=== PATIENT | female | born 1935 | race Caucasian/White ===

== ENCOUNTER 2017-06-25 14:19 | Inpatient (IN) | payer OTHER ==
[~2017-06-25] VITALS: Ht 175.3 cm; Wt 90.3 kg
[2017-06-25 14:49] LABS: BASO # 0.1 x10^3/uL (0.0-0.2); BASO % 1 % (0-3); EOS % 1 % (0-3); HEMATOCRIT 41.5 % (36.0-47.0); HEMOGLOBIN 13.5 g/dL (12.0-15.5); LYMPH % 14 % (24-48); MEAN CORPUSCULAR HEMOGLOBIN 27 pg (25-35); MEAN CORPUSCULAR HGB CONC 33 g/dL (31-37); MEAN CORPUSCULAR VOLUME 84 fL (79-100); MONO % 8 % (0-9); NEUT % 77 % (31-73); PLATELET COUNT 284 x10^3/uL (140-400); RED BLOOD COUNT 4.93 x10^6/uL (3.50-5.40); RED CELL DISTRIBUTION WIDTH 15.4 % (11.5-14.5); WHITE BLOOD COUNT 7.3 x10^3/uL (4.0-11.0)
--- NOTE | 2017-06-25 14:52 | RAD ---
Chest radiograph 06/25/2017 at 1433 hours Indication: Shortness of air Comparison: None available Technique: Single frontal portable upright view of the chest is provided. Findings: Cardiomediastinal silhouette is enlarged. Small bilateral pleural effusions are present. There is an opacity in the right upper lobe which appears nodular and spiculated measuring 15 mm. Increased density in the right hilum may represent hilar lymphadenopathy. There is hazy opacity at the right lower lobe suggestive of atelectasis and/or infiltrates. Advanced right glenohumeral osteoarthrosis is present. Biapical pleural parenchymal scarring, right greater than left. No pneumothorax or pulmonary vascular congestion. Impression: 1. 15 mm spiculated nodule in the right upper lobe is suspicious for primary lung mass. Alternatively, findings may represent infectious/inflammatory etiology. Suspect right hilar lymphadenopathy. Further evaluation with a chest CT with contrast is recommended. 2. Enlarged cardiomediastinal silhouette with small bilateral pleural effusions.
[2017-06-25 14:59] LABS: CALCIUM 8.4 mg/dL (8.5-10.1); CREATININE 0.9 mg/dL (0.6-1.0); GFR 60.4; POTASSIUM 4.3 mmol/L (3.5-5.1)
[2017-06-25] MEDS ORDERED: cloNIDine HCL 0.1 MG TABLET PO ONE (15:00)
[2017-06-25 15:05] LABS: ALBUMIN 3.5 g/dL (3.4-5.0); ALBUMIN/GLOBULIN RATIO 1.1 (1.0-1.7); TOTAL BILIRUBIN 0.7 mg/dL (0.2-1.0); TOTAL PROTEIN 6.8 g/dL (6.4-8.2)
[2017-06-25] MEDS ORDERED: IOHEXOL 300 MG/ML 75 ML VIAL IV ONE (15:15)
[2017-06-25] MEDS ORDERED: CONTRAST GIVEN MC PRN (15:15)
[2017-06-25] MEDS ORDERED: FUROSEMIDE 40 MG/4 ML VIAL. IVP ONE (15:30)
[2017-06-25] MEDS ORDERED: ASPIRIN CHEWABLE 81 MG TABLET. PO ONE (15:30)
--- NOTE | 2017-06-25 16:34 | RAD ---
CTA of the chest with contrast, 06/25/2017: History: Shortness of breath Multidetector CT imaging was performed following an IV bolus injection of iodinated contrast material. Multiplanar reconstructions were produced including coronal MIP images. The central pulmonary arteries are well opacified and no filling defects are seen to suggest pulmonary emboli. The heart is generally enlarged. There is calcific plaquing of the thoracic aorta without evidence of aneurysm. The aortic lumen is not significantly opacified due to the bolus timing. Scattered coronary artery calcifications are present. Multiple small mediastinal lymph nodes are present without definite pathologic enlargement. There is a moderate sized right pleural effusion and a smaller left pleural effusion. Interlobular septal thickening is present, best seen in the lower chest. There are moderate patchy bibasilar infiltrates. There is a peripheral density in the right apex with underlying areas of mild bronchiectasis. This probably represents scarring with traction bronchiectasis. There is a 12 mm spiculated noncalcified peripheral parenchymal opacity laterally in the left upper lobe as best seen on image 33 of series #3. Small bilateral renal cysts are noted. The right breast is surgically absent. There are moderate scattered degenerative changes in the thoracic spine. There is a slight superior endplate deformity at T6, of indeterminate age. There is severe arthritic change at the right glenohumeral articulation. IMPRESSION: 1. No CT evidence of central pulmonary emboli. 2. Cardiomegaly with coronary artery calcifications. 3. Moderate-sized pleural effusions, right greater than left. 4. Moderate patchy bilateral pulmonary infiltrates and interlobular septal thickening most likely representing pulmonary edema due to congestive heart failure. A component of pneumonia cannot be excluded. 5. Traction bronchiectasis and scarring in the right apex. 6. Small spiculated left upper lobe pulmonary nodule raising the possibility of lung malignancy. PQRS Compliance Statement: One or more of the following individualized dose reduction techniques were utilized for this examination: 1. Automated exposure control 2. Adjustment of the mA and/or kV according to patient size 3. Use of iterative reconstruction technique
[2017-06-25] MEDS ORDERED: ONDANSETRON PF 4 MG/2 ML VIAL. IV PRN (16:45)
--- NOTE | 2017-06-25 17:27 | HP ---
ADMIT DATE: 06/25/2017 CHIEF COMPLAINT: Shortness of breath and edema. HISTORY OF PRESENT ILLNESS: The patient is a pleasant elderly female who presents with shortness of breath and edema. She rates it as 7/10, it has been occurring for a couple of weeks. While in the ER, we noted that she had a BNP elevation of 12,000. Chest x-rays and CAT scans ____ showing a large pleural effusion bilaterally. I have discussed the case with the ER physician and her son. We are going to admit the patient with tentative diagnosis of congestive heart failure, acute on chronic diastolic and systolic. PAST MEDICAL HISTORY: Reviewed in the computerized system. She does have a history of breast cancer with right mastectomy when she was 32. ALLERGIES: None. FAMILY HISTORY: Heart failure. SOCIAL HISTORY: She does not drink, smoke or take drugs. MEDICATIONS: Reviewed, please refer to the MRAD. REVIEW OF SYSTEMS: GENERAL: No history of weight change, weakness or fevers. SKIN: No bruising, hair changes or rashes. EYES: No blurred, double or loss of vision. NOSE AND THROAT: No history of nosebleeds, hoarseness or sore throat. HEART: No history of palpitations, chest pain or shortness of breath on exertion. LUNGS: She complains of shortness of breath. GASTROINTESTINAL: Denies changes in appetite, nausea, vomiting, diarrhea or constipation. GENITOURINARY: No history of frequency, urgency, hesitancy or nocturia. NEUROLOGIC: Denies history of numbness, tingling, tremor or weakness. PSYCHIATRIC: No history of panic, anxiety or depression. ENDOCRINE: No history of heat or cold intolerance, polyuria or polydipsia. EXTREMITIES: She complains of edema. PHYSICAL EXAMINATION: VITAL SIGNS: Temperature afebrile, pulse 143, respirations 18, blood pressure 155/102, O2 sat 91%. GENERAL: She is alert, cooperative. HEART: Distant S1, S2 with a soft S3. LUNGS: Diffuse crackles with diminished breath sounds. ABDOMEN: Soft. EXTREMITIES: 2+ edema. SKIN: Somewhat poorly kept, somewhat dirty on her feet and the toenails have tinea unguium. ENDOCRINE: No thyromegaly. LYMPHATICS: No cervical nodes. HEMATOPOIETIC: No bruising. LABORATORY DATA: White count 7, hemoglobin 13, platelets 284. Electrolytes normal. BNP 11,998. 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 The patient has been admitted. We will consult Pulmonary Medicine and Cardiology. IV Lasix, check serial enzymes, serial EKGs, echocardiogram, frequent labs. Prognosis is guarded. GÓMEZ CHACON DO DR: GAYLE/seven JOB#: [id number] / [id number]
[2017-06-25 19:30] VITALS: BP 135/95
--- NOTE | 2017-06-25 20:45 | PHYS DOC ---
Past Medical History Past Medical History: High Cholesterol, Other Additional Past Medical Histor: SEASONAL ALLERGIES Past Surgical History: Oophorectomy Additional Past Surgical Histo: FOOT SX, MASECTOMY RIGHT SIDE Alcohol Use: Occasionally Additional Information: 1-2 GLASSES OF WINE/NIGHT Drug Use: None Adult General Chief Complaint Chief Complaint: SHORTNESS OF BREATH HPI HPI Patient is a 81 year old female presents with progressive shortness of breath with wet nonproductive cough over the past several weeks with progression over the past 2-3 days. Patient reports dyspnea with exertion which is improved with rest. Patient has been treating herself for asthma which has not improved. Patient denies orthopnea, paroxysmal nocturnal dyspnea. She denies fever, chills , nausea vomiting and sweats. Denies increased leg pain or swelling. Denies history of f DVT, PE, COPD, CAD and congestive heart failure. No other acute symptoms or else. Patient's accompanied at bedside by her son. Review of Systems Review of Systems Review symptoms as per history of present illness. All other review symptoms are negative. Current Medications Current Medications Current Medications Medications (Trade) Dose Ordered Sig/Shellie Start Time Stop Time Status Last Admin Dose Admin Clonidine HCl (Catapres) 0.2 mg 1X ONCE 06/25/17 15:00 06/25/17 15:01 DC Allergies Allergies Allergies Coded Allergies Type Severity Reaction Last Updated Verified Penicillins Allergy Intermediate Rash 06/25/17 Yes Sulfa (Sulfonamide Antibiotics) Allergy Intermediate 06/25/17 Yes niacin Allergy Intermediate 06/25/17 Yes Physical Exam Physical Exam Constitutional: Well developed, well nourished, no acute distress, non-toxic appearance. [] HENT: Normocephalic, atraumatic, bilateral external ears normal, oropharynx moist, no oral exudates, nose normal. [] Eyes: PERRLA, EOMI, conjunctiva normal, no discharge. [] Neck: Normal range of motion, no tenderness, supple, no stridor. [] Cardiovascular: Tachycardic, peripheral edema, negative Homans signs. [] Lungs & Thorax: Respirations, tachypneic, respiratory rate in 30s to 40s, coarse rales bilaterally. [] Abdomen: Bowel sounds normal, soft, no tenderness, no masses, no pulsatile masses. [] Skin: Warm, dry, no erythema, no rash. [] Back: No tenderness, no CVA tenderness. [] Extremities: No tenderness, no cyanosis, no clubbing, ROM intact, no edema. [] Neurologic: Alert and oriented X 3, normal motor function, normal sensory function, no focal deficits noted. [] Psychologic: Affect, anxious.. [] Current Patient Data Vital Signs Vital Signs Date Time Temp Pulse Resp B/P (MAP) Pulse Ox O2 Delivery O2 Flow Rate FiO2 06/25/17 15:00 134 22 134/90 (105) 94 Room Air 06/25/17 14:27 97.9 97.9 Lab Values Laboratory Tests Test 06/25/17 14:38 White Blood Count 7.3 x10^3/uL (4.0-11.0) Red Blood Count 4.93 x10^6/uL (3.50-5.40) Hemoglobin 13.5 g/dL (12.0-15.5) Hematocrit 41.5 % (36.0-47.0) Mean Corpuscular Volume 84 fL (79-100) Mean Corpuscular Hemoglobin 27 pg (25-35) Mean Corpuscular Hemoglobin Concent 33 g/dL (31-37) Red Cell Distribution Width 15.4 % (11.5-14.5) H Platelet Count 284 x10^3/uL (140-400) Neutrophils (%) (Auto) 77 % (31-73) H Lymphocytes (%) (Auto) 14 % (24-48) L Monocytes (%) (Auto) 8 % (0-9) Eosinophils (%) (Auto) 1 % (0-3) Basophils (%) (Auto) 1 % (0-3) Neutrophils # (Auto) 5.7 x10^3uL (1.8-7.7) Lymphocytes # (Auto) 1.0 x10^3/uL (1.0-4.8) Monocytes # (Auto) 0.5 x10^3/uL (0.0-1.1) Eosinophils # (Auto) 0.0 x10^3/uL (0.0-0.7) Basophils # (Auto) 0.1 x10^3/uL (0.0-0.2) Sodium Level 140 mmol/L (136-145) Potassium Level 4.3 mmol/L (3.5-5.1) Chloride Level 106 mmol/L (98-107) Carbon Dioxide Level 25 mmol/L (21-32) Anion Gap 9 (6-14) Blood Urea Nitrogen 16 mg/dL (7-20) Creatinine 0.9 mg/dL (0.6-1.0) Estimated GFR (Cockcroft-Gault) 60.4 BUN/Creatinine Ratio 18 (6-20) Glucose Level 128 mg/dL (70-99) H Calcium Level 8.4 mg/dL (8.5-10.1) L Total Bilirubin 0.7 mg/dL (0.2-1.0) Aspartate Amino Transferase (AST) 26 U/L (15-37) Alanine Aminotransferase (ALT) 35 U/L (14-59) Alkaline Phosphatase 78 U/L (46-116) Troponin I Quantitative 0.019 ng/mL (0.000-0.055) VY-Dfr-F-Type Natriuretic Peptide 78013 pg/mL (0-449) H Total Protein 6.8 g/dL (6.4-8.2) Albumin 3.5 g/dL (3.4-5.0) Albumin/Globulin Ratio 1.1 (1.0-1.7) Laboratory Tests 06/25/17 14:38 Laboratory Tests 06/25/17 14:38 EKG EKG [EKG: Sinus tach] Radiology/Procedures Radiology/Procedures [Chest x-ray: Pulmonary vascular congestion with concern for spiculated nodule in right upper lobe per radiology report. CTA chest: No evidence of PE. Moderate size pleural effusions right greater than left, moderate patchy bilateral pulmonary infiltrates and injure ocular septal thickening most likely representing pulmonary edema due to CHF, traction bronchiectasis, spiculated left upper lobe pulmonary nodule raising the possibility of malignancy per radiology report] Course & Med Decision Making Course & Med Decision Making Pertinent Labs and Imaging studies reviewed. (See chart for details) [New-onset CHF. IV diuretics given with improved symptoms. Patient noted to be in sinus tach, no evidence of PE on CT angiogram. Dr. Dias to admit. Pulmonology and cardiology consulted.] Dragon Disclaimer Dragon Disclaimer This electronic medical record was generated, in whole or in part, using a voice recognition dictation system. Departure Departure Impression: Primary Impression: CHF exacerbation Disposition: ADMITTED INPATIENT Admitting Physician: Lucian Dias Condition: STABLE Referrals: MURIEL SLATER MD (PCP) DEBORAH MONTOYA DO Jun 25, 2017 20:45
[2017-06-25] MEDS ORDERED: FUROSEMIDE 40 MG/4 ML VIAL. IVP SCH (21:00)
[2017-06-25 23:00] VITALS: BP 135/91
--- NOTE | 2017-06-25 23:57 | ACF ---
Admission Forms Criteria HEART FAILURE: COMMON COMPLICATIONS (Place 'X' for any and all applicable criteria): Ongoing inpatient care may be indicated for heart failure with 1 or more of the following (1)(2)(3)(4)(5)(6)(7)(8): [ ]I. New-onset heart failure [ ]II. Acute cardiac ischemia causing or associated with failure [ ]III. Ongoing need for care for primary condition requiring frequent therapy adjustments because of changes in cardiac function (eg, drug dosage changes for drugs that are renally metabolized) [ X]IV. Complications of heart failure, including 1 or more of the following: [ ]a) Hemodynamic instability [ ]b) Pericardial effusion [ ]c) Symptomatic pleural effusion [ ]d) Hypoxemia [ ]e) Tachypnea [X ]f) Dyspnea [ ]g) Syncope [ ]h) Altered mental status [ ]i) Acute renal insufficiency that is severe (reduction of more than 50% in estimated glomerular filtration rate from baseline) or progressive reduction of more than 25% in estimated glomerular filtration rate from baseline, with creatinine continuing to rise) [ ]j) Debilitating anasarca (eg tissue breakdown with infection, inability to void due to edema) (E) [ ]k) Clinically significant metabolic abnormalities due to heart failure (eg, new-onset metabolic acidosis) Extended stay may be needed until ALL of the following are present (1)(3)(18)(41 )(55) [ ]a) Hemodynamic stability [ ]b) Stable and effective diuretic regimen established (or patient on stable dialysis regimen if in chronic renal failure) [ ]c) Volume status acceptable on oral medication [ ]d) Breathing comfortably at rest [ ]e) Saturation of arterial oxygen greater than 90% or at acceptable baseline [ ]f) Pulmonary edema absent or improved [ ]g) Peripheral or sacral edema absent or improved [ ]h) Renal function stable and manageable at a lower level of care [ ]i) Complications (eg, pleural effusion) resolved or manageable at a lower level of care [ ]g) Patient or caregiver has received written discharge instructions or educational material addressing activity level, diet, discharge medications, follow-up appointment, weight monitoring, and what to do if symptoms worsen.(25)(26) The original [facility] content created by [email or web address] has been revised. The portions of the content which have been revised are identified through the use of italic text, and [facility] has neither reviewed nor approved the modified material.All other unmodified content is copyright [facility]. Please see references footnoted in the original [facility] edition 2015 Admission Criteria Met?: Yes FAMILIA MÁRQUEZ Jun 25, 2017 23:57
[2017-06-26] MEDS ORDERED: MULT-208 PO (01:40)
[2017-06-26 03:05] VITALS: BP 116/87
[2017-06-26 06:07] LABS: ALBUMIN 3.2 g/dL (3.4-5.0); ALBUMIN/GLOBULIN RATIO 1.2 (1.0-1.7); CALCIUM 8.5 mg/dL (8.5-10.1); CREATININE 0.8 mg/dL (0.6-1.0); GFR 69.2; TOTAL BILIRUBIN 0.5 mg/dL (0.2-1.0); TOTAL PROTEIN 5.8 g/dL (6.4-8.2)
--- NOTE | 2017-06-26 07:07 | EKG ---
[facility] [address] [place] [address] Test Date: 2017-06-25 Test Time: 14:34:57 Pat Name: ROYAL JUAN Department: Room: 205 1 Gender: F Supervisor Steffen House: : 1935 Requested By: DEBORAH MONTOYA Order Number: [id number] Reading MD: Uma Avendano Measurements Intervals Patrick Rate: 138 P: 144 NV: 112 QRS: -19 QRSD: 86 T: 102 QT: 314 QTc: 483 Interpretive Statements SINUS TACHYCARDIA ATRIAL PREMATURE COMPLEX(ES) LEFTWARD AXIS INCOMPLETE RIGHT BUNDLE BRANCH BLOCK CONSIDER LEFT VENTRICULAR HYPERTROPHY ST & T ABNORMALITY, CONSIDER ANTEROLATERAL ISCHEMIA Electronically Signed On 06-27-2017 20:22:19 CDT by Uma Avendano
[2017-06-26 07:20] VITALS: BP 122/91
[2017-06-26] MEDS ORDERED: CETI10TA16 PO (08:08)
[2017-06-26] MEDS ORDERED: ATOR20TA58 PO (08:08)
[2017-06-26] MEDS: FUROSEMIDE 40 MG/4 ML VIAL. IVP SCH ×2 (09:37→20:29)
--- NOTE | 2017-06-26 09:38 | PDOC2 ---
VIRIDIANA HIDALGO SHAKER OUT 06/26/17 0938: CARDIAC CONSULT DATE OF CONSULT Date of Consult DATE: 06/26/17 TIME: 09:32 REASON FOR CONSULT Reason for Consult: CHF REFERRING PHYSICIAN Referring Physician: Juan Daniel SOURCE Source: Chart review, Patient HISTORY OF PRESENT ILLNESS HISTORY OF PRESENT ILLNESS This is a pleasant 81 yo female admitted for complains of SOA. Reports that she has been having bouts of KOCH in the last few weeks and became more prominent in the last week. Positive for intermittent episodes of orthopnea and PND. No productive cough nor CP. She thought it was just her asthma a d allergies but her treatment has not been helping. Denies any fever or chills. Upon admission she was noted with CHF. Upon tele review it appears that she has been having paroxysmal episodes of 2:1 atrial flutter which she does have hx of . She is positive for remote breast CA treated with mastectomy and cobalt treatment. Reports no hx of VTE, CAD, GI bleed. Lately in addition she has been having decreased appetite, no significant swelling of her extremities. Denies any diarrhea, nausea or vomiting but she has been experiencing some palpitations. PAST MEDICAL HISTORY Cardiovascular: HTN (regimen taken off in the past since her BP has been good) , Hyperlipidemia Pulmonary: Asthma GI: No pertinent hx Heme/Onc: Cancer (breast) Hepatobiliary: No pertinent hx Psych: No pertinent hx Musculoskeletal: Osteoarthritis Rheumatologic: No pertinent hx Infectious disease: No pertinent hx ENT: Allergic Rhinitis Renal/: No pertinent hx Endocrine: No pertinent hx, Other (miscarriage) Dermatology: No pertinent hx Grav: 3 Para: 2 PAST SURGICAL HISTORY Past Surgical History: Mastectomy (right in 1972), Other (oopherectomy and right foot surgery) FAMILY HISTORY Family History: Stroke (father) SOCIAL HISTORY Smoke: No ALCOHOL: none Drugs: None Lives: with Family (son) CURRENT MEDICATIONS CURRENT MEDICATIONS Current Medications Medications (Trade) Dose Ordered Sig/Shellie Route PRN Reason Start Time Stop Time Status Last Admin Dose Admin Iohexol (Omnipaque 300 Mg/ml) 75 ml 1X ONCE IV 06/25/17 15:15 06/25/17 15:16 DC 06/25/17 15:56 Furosemide (Lasix) 40 mg 1X ONCE IVP 06/25/17 15:30 06/25/17 15:37 DC 06/25/17 16:32 Aspirin (Children'S Aspirin) 162 mg 1X ONCE PO 06/25/17 15:30 06/25/17 15:37 DC 06/25/17 16:33 ALLERGIES ALLERGIES: Coded Allergies: Penicillins (Verified Allergy, Intermediate, Rash, 06/25/17) Sulfa (Sulfonamide Antibiotics) (Verified Allergy, Intermediate, 06/25/17) niacin (Verified Allergy, Intermediate, 06/25/17) ROS Review of System 14 point ROS evaluated with pertinent positives noted per HPI PHYSICAL EXAM General: Alert, Oriented X3, Cooperative, No acute distress HEENT: Atraumatic, Mucous membr. moist/pink Lungs: Other (basilar crackles) Heart: Regular rate (SR), Normal S1, Normal S2, Other (2/6 systolic murmur to LLS border) Abdomen: Soft, No tenderness Extremities: No cyanosis, Other (1+ bilateral LE pitting edema) Skin: No breakdown, No significant lesion Neuro: Normal speech, Sensation intact Psych/Mental Status: Mental status NL, Mood NL MUSCULOSKELETAL: Osteoarthritic changes both hands VITALS VITALS Vital Signs Date Time Temp Pulse Resp B/P (MAP) Pulse Ox O2 Delivery O2 Flow Rate FiO2 06/26/17 07:20 97.5 139 22 122/91 (101) 98 Room Air 97.5 LABS Lab: Laboratory Tests Test 06/25/17 14:38 06/25/17 22:45 06/26/17 04:45 White Blood Count 7.3 x10^3/uL (4.0-11.0) Red Blood Count 4.93 x10^6/uL (3.50-5.40) Hemoglobin 13.5 g/dL (12.0-15.5) Hematocrit 41.5 % (36.0-47.0) Mean Corpuscular Volume 84 fL (79-100) Mean Corpuscular Hemoglobin 27 pg (25-35) Mean Corpuscular Hemoglobin Concent 33 g/dL (31-37) Red Cell Distribution Width 15.4 % (11.5-14.5) Platelet Count 284 x10^3/uL (140-400) Neutrophils (%) (Auto) 77 % (31-73) Lymphocytes (%) (Auto) 14 % (24-48) Monocytes (%) (Auto) 8 % (0-9) Eosinophils (%) (Auto) 1 % (0-3) Basophils (%) (Auto) 1 % (0-3) Neutrophils # (Auto) 5.7 x10^3uL (1.8-7.7) Lymphocytes # (Auto) 1.0 x10^3/uL (1.0-4.8) Monocytes # (Auto) 0.5 x10^3/uL (0.0-1.1) Eosinophils # (Auto) 0.0 x10^3/uL (0.0-0.7) Basophils # (Auto) 0.1 x10^3/uL (0.0-0.2) Sodium Level 140 mmol/L (136-145) 144 mmol/L (136-145) Potassium Level 4.3 mmol/L (3.5-5.1) 4.0 mmol/L (3.5-5.1) Chloride Level 106 mmol/L (98-107) 106 mmol/L (98-107) Carbon Dioxide Level 25 mmol/L (21-32) 26 mmol/L (21-32) Anion Gap 9 (6-14) 12 (6-14) Blood Urea Nitrogen 16 mg/dL (7-20) 15 mg/dL (7-20) Creatinine 0.9 mg/dL (0.6-1.0) 0.8 mg/dL (0.6-1.0) Estimated GFR (Cockcroft-Gault) 60.4 69.2 BUN/Creatinine Ratio 18 (6-20) 19 (6-20) Glucose Level 128 mg/dL (70-99) 96 mg/dL (70-99) Calcium Level 8.4 mg/dL (8.5-10.1) 8.5 mg/dL (8.5-10.1) Total Bilirubin 0.7 mg/dL (0.2-1.0) 0.5 mg/dL (0.2-1.0) Aspartate Amino Transf (AST/SGOT) 26 U/L (15-37) 22 U/L (15-37) Alanine Aminotransferase (ALT/SGPT) 35 U/L (14-59) 27 U/L (14-59) Alkaline Phosphatase 78 U/L (46-116) 71 U/L (46-116) Troponin I Quantitative 0.019 ng/mL (0.000-0.055) 0.043 ng/mL (0.000-0.055) 0.042 ng/mL (0.000-0.055) JU-Atw-F-Type Natriuretic Peptide 93124 pg/mL (0-449) Total Protein 6.8 g/dL (6.4-8.2) 5.8 g/dL (6.4-8.2) Albumin 3.5 g/dL (3.4-5.0) 3.2 g/dL (3.4-5.0) Albumin/Globulin Ratio 1.1 (1.0-1.7) 1.2 (1.0-1.7) ASSESSMENT/PLAN ASSESSMENT/PLAN 1. Dyspnea with RUL mass and acute CHF likely diastolic dysfunction: SVT contributing 2. Hx of asthma 3. Arrhythmia: appears to be paroxysmal episodes of 2:1 atrial flutter 4. HTN: unmedicated, controlled 5. HLP: on home statin 6. HX of breast CA: in 1972 with mastectomy and treated with cobalt Recommendations 1. CXR, TTE, TSH, lipid panel, Mg, UA 2. Start on ECASA for now. Start on metoprolol 3. Continue with lasix. 4. Pulmonary consult. Problems: SHERRY PULIDO MD 06/27/17 0935: CARDIAC CONSULT ALLERGIES ALLERGIES: Coded Allergies: Penicillins (Verified Allergy, Intermediate, Rash, 06/25/17) Sulfa (Sulfonamide Antibiotics) (Verified Allergy, Intermediate, 06/25/17) niacin (Verified Allergy, Intermediate, 06/25/17) ASSESSMENT/PLAN ASSESSMENT/PLAN Patient seen and examined 06/26/17. Agree with TIRE CHANGER's assessment and plan. Continue diuresis for acute on chronic systolic heart failure. 2D echo showed EF 10-15%. Plan Lexiscan MPI for risk stratification Atrial flutter rate relatively well controlled Continue workup for lung mass per pulm team Consider NOAC for atrial flutter upon discharge if ok from pulm standpoint Thank you for you consultation. Problems: VIRIDIANA HIDALGO APRN Jun 26, 2017 09:38 SHERRY PULIDO MD Jun 27, 2017 09:35
--- NOTE | 2017-06-26 10:01 | PDOC ---
PROGRESS NOTES Chief Complaint Chief Complaint CC SOB, CHF exacerbation Hypercholesterolemia Breast CA History of Present Illness History of Present Illness 81 y/o F with CC of SOB with CHF exacerbation pt was greeted at the bedside in pleasant spirits AO3 pt was tachycardic CXR showed b/l pleural effusion and congested pulmonary vasculature lasix given today 40 IV BNP 98379 on 06/25 Vitals Vitals Vital Signs Date Time Temp Pulse Resp B/P (MAP) Pulse Ox O2 Delivery O2 Flow Rate FiO2 06/26/17 07:20 97.5 139 22 122/91 (101) 98 Room Air 97.5 Physical Exam General: Alert, Oriented X3, Cooperative, No acute distress Heart: Regular rate, Normal S1, Normal S2, No murmurs Lungs: Clear, Other Abdomen: Normal bowel sounds, Soft Extremities: No clubbing, No cyanosis Skin: No rashes, No breakdown Labs LABS Laboratory Tests Test 06/25/17 14:38 06/25/17 22:45 06/26/17 04:45 White Blood Count 7.3 x10^3/uL (4.0-11.0) Red Blood Count 4.93 x10^6/uL (3.50-5.40) Hemoglobin 13.5 g/dL (12.0-15.5) Hematocrit 41.5 % (36.0-47.0) Mean Corpuscular Volume 84 fL (79-100) Mean Corpuscular Hemoglobin 27 pg (25-35) Mean Corpuscular Hemoglobin Concent 33 g/dL (31-37) Red Cell Distribution Width 15.4 % (11.5-14.5) Platelet Count 284 x10^3/uL (140-400) Neutrophils (%) (Auto) 77 % (31-73) Lymphocytes (%) (Auto) 14 % (24-48) Monocytes (%) (Auto) 8 % (0-9) Eosinophils (%) (Auto) 1 % (0-3) Basophils (%) (Auto) 1 % (0-3) Neutrophils # (Auto) 5.7 x10^3uL (1.8-7.7) Lymphocytes # (Auto) 1.0 x10^3/uL (1.0-4.8) Monocytes # (Auto) 0.5 x10^3/uL (0.0-1.1) Eosinophils # (Auto) 0.0 x10^3/uL (0.0-0.7) Basophils # (Auto) 0.1 x10^3/uL (0.0-0.2) Sodium Level 140 mmol/L (136-145) 144 mmol/L (136-145) Potassium Level 4.3 mmol/L (3.5-5.1) 4.0 mmol/L (3.5-5.1) Chloride Level 106 mmol/L (98-107) 106 mmol/L (98-107) Carbon Dioxide Level 25 mmol/L (21-32) 26 mmol/L (21-32) Anion Gap 9 (6-14) 12 (6-14) Blood Urea Nitrogen 16 mg/dL (7-20) 15 mg/dL (7-20) Creatinine 0.9 mg/dL (0.6-1.0) 0.8 mg/dL (0.6-1.0) Estimated GFR (Cockcroft-Gault) 60.4 69.2 BUN/Creatinine Ratio 18 (6-20) 19 (6-20) Glucose Level 128 mg/dL (70-99) 96 mg/dL (70-99) Calcium Level 8.4 mg/dL (8.5-10.1) 8.5 mg/dL (8.5-10.1) Total Bilirubin 0.7 mg/dL (0.2-1.0) 0.5 mg/dL (0.2-1.0) Aspartate Amino Transf (AST/SGOT) 26 U/L (15-37) 22 U/L (15-37) Alanine Aminotransferase (ALT/SGPT) 35 U/L (14-59) 27 U/L (14-59) Alkaline Phosphatase 78 U/L (46-116) 71 U/L (46-116) Troponin I Quantitative 0.019 ng/mL (0.000-0.055) 0.043 ng/mL (0.000-0.055) 0.042 ng/mL (0.000-0.055) ZN-Wdd-Q-Type Natriuretic Peptide 96579 pg/mL (0-449) Total Protein 6.8 g/dL (6.4-8.2) 5.8 g/dL (6.4-8.2) Albumin 3.5 g/dL (3.4-5.0) 3.2 g/dL (3.4-5.0) Albumin/Globulin Ratio 1.1 (1.0-1.7) 1.2 (1.0-1.7) Review of Systems Review of Systems pt did not complain of pain or NVD pt had a nonproductive cough Assessment and Plan Assessmemt and Plan CC SOB, CHF exacerbation Hypercholesterolemia Breast CA PLAN -wait for cardio/pulm input (awaiting echo) -cont home meds -cont monitoring fluids and electrolytes -pt positioning to prevent fluid overload (pt recliner) -PTOT Problems: Comment Review of Relevant I have reviewed the following items george (where applicable) has been applied. Labs Laboratory Tests Test 06/25/17 14:38 06/25/17 22:45 06/26/17 04:45 White Blood Count 7.3 x10^3/uL (4.0-11.0) Red Blood Count 4.93 x10^6/uL (3.50-5.40) Hemoglobin 13.5 g/dL (12.0-15.5) Hematocrit 41.5 % (36.0-47.0) Mean Corpuscular Volume 84 fL (79-100) Mean Corpuscular Hemoglobin 27 pg (25-35) Mean Corpuscular Hemoglobin Concent 33 g/dL (31-37) Red Cell Distribution Width 15.4 % (11.5-14.5) Platelet Count 284 x10^3/uL (140-400) Neutrophils (%) (Auto) 77 % (31-73) Lymphocytes (%) (Auto) 14 % (24-48) Monocytes (%) (Auto) 8 % (0-9) Eosinophils (%) (Auto) 1 % (0-3) Basophils (%) (Auto) 1 % (0-3) Neutrophils # (Auto) 5.7 x10^3uL (1.8-7.7) Lymphocytes # (Auto) 1.0 x10^3/uL (1.0-4.8) Monocytes # (Auto) 0.5 x10^3/uL (0.0-1.1) Eosinophils # (Auto) 0.0 x10^3/uL (0.0-0.7) Basophils # (Auto) 0.1 x10^3/uL (0.0-0.2) Sodium Level 140 mmol/L (136-145) 144 mmol/L (136-145) Potassium Level 4.3 mmol/L (3.5-5.1) 4.0 mmol/L (3.5-5.1) Chloride Level 106 mmol/L (98-107) 106 mmol/L (98-107) Carbon Dioxide Level 25 mmol/L (21-32) 26 mmol/L (21-32) Anion Gap 9 (6-14) 12 (6-14) Blood Urea Nitrogen 16 mg/dL (7-20) 15 mg/dL (7-20) Creatinine 0.9 mg/dL (0.6-1.0) 0.8 mg/dL (0.6-1.0) Estimated GFR (Cockcroft-Gault) 60.4 69.2 BUN/Creatinine Ratio 18 (6-20) 19 (6-20) Glucose Level 128 mg/dL (70-99) 96 mg/dL (70-99) Calcium Level 8.4 mg/dL (8.5-10.1) 8.5 mg/dL (8.5-10.1) Total Bilirubin 0.7 mg/dL (0.2-1.0) 0.5 mg/dL (0.2-1.0) Aspartate Amino Transf (AST/SGOT) 26 U/L (15-37) 22 U/L (15-37) Alanine Aminotransferase (ALT/SGPT) 35 U/L (14-59) 27 U/L (14-59) Alkaline Phosphatase 78 U/L (46-116) 71 U/L (46-116) Troponin I Quantitative 0.019 ng/mL (0.000-0.055) 0.043 ng/mL (0.000-0.055) 0.042 ng/mL (0.000-0.055) CK-Fus-Q-Type Natriuretic Peptide 85760 pg/mL (0-449) Total Protein 6.8 g/dL (6.4-8.2) 5.8 g/dL (6.4-8.2) Albumin 3.5 g/dL (3.4-5.0) 3.2 g/dL (3.4-5.0) Albumin/Globulin Ratio 1.1 (1.0-1.7) 1.2 (1.0-1.7) Laboratory Tests Test 06/25/17 14:38 06/25/17 22:45 06/26/17 04:45 White Blood Count 7.3 x10^3/uL (4.0-11.0) Red Blood Count 4.93 x10^6/uL (3.50-5.40) Hemoglobin 13.5 g/dL (12.0-15.5) Hematocrit 41.5 % (36.0-47.0) Mean Corpuscular Volume 84 fL (79-100) Mean Corpuscular Hemoglobin 27 pg (25-35) Mean Corpuscular Hemoglobin Concent 33 g/dL (31-37) Red Cell Distribution Width 15.4 % (11.5-14.5) Platelet Count 284 x10^3/uL (140-400) Neutrophils (%) (Auto) 77 % (31-73) Lymphocytes (%) (Auto) 14 % (24-48) Monocytes (%) (Auto) 8 % (0-9) Eosinophils (%) (Auto) 1 % (0-3) Basophils (%) (Auto) 1 % (0-3) Neutrophils # (Auto) 5.7 x10^3uL (1.8-7.7) Lymphocytes # (Auto) 1.0 x10^3/uL (1.0-4.8) Monocytes # (Auto) 0.5 x10^3/uL (0.0-1.1) Eosinophils # (Auto) 0.0 x10^3/uL (0.0-0.7) Basophils # (Auto) 0.1 x10^3/uL (0.0-0.2) Sodium Level 140 mmol/L (136-145) 144 mmol/L (136-145) Potassium Level 4.3 mmol/L (3.5-5.1) 4.0 mmol/L (3.5-5.1) Chloride Level 106 mmol/L (98-107) 106 mmol/L (98-107) Carbon Dioxide Level 25 mmol/L (21-32) 26 mmol/L (21-32) Anion Gap 9 (6-14) 12 (6-14) Blood Urea Nitrogen 16 mg/dL (7-20) 15 mg/dL (7-20) Creatinine 0.9 mg/dL (0.6-1.0) 0.8 mg/dL (0.6-1.0) Estimated GFR (Cockcroft-Gault) 60.4 69.2 BUN/Creatinine Ratio 18 (6-20) 19 (6-20) Glucose Level 128 mg/dL (70-99) 96 mg/dL (70-99) Calcium Level 8.4 mg/dL (8.5-10.1) 8.5 mg/dL (8.5-10.1) Total Bilirubin 0.7 mg/dL (0.2-1.0) 0.5 mg/dL (0.2-1.0) Aspartate Amino Transf (AST/SGOT) 26 U/L (15-37) 22 U/L (15-37) Alanine Aminotransferase (ALT/SGPT) 35 U/L (14-59) 27 U/L (14-59) Alkaline Phosphatase 78 U/L (46-116) 71 U/L (46-116) Troponin I Quantitative 0.019 ng/mL (0.000-0.055) 0.043 ng/mL (0.000-0.055) 0.042 ng/mL (0.000-0.055) NQ-Sxa-W-Type Natriuretic Peptide 30498 pg/mL (0-449) Total Protein 6.8 g/dL (6.4-8.2) 5.8 g/dL (6.4-8.2) Albumin 3.5 g/dL (3.4-5.0) 3.2 g/dL (3.4-5.0) Albumin/Globulin Ratio 1.1 (1.0-1.7) 1.2 (1.0-1.7) Medications Current Medications Clonidine HCl (Catapres) 0.2 mg 1X ONCE PO ; Start 06/25/17 at 15:00; Stop at 15:01; Status DC Iohexol (Omnipaque 300 Mg/ml) 75 ml 1X ONCE IV Last administered on 06/25/17t 15:56; Start 06/25/17 at 15:15; Stop 06/25/17 at 15:16; Status DC Info (Do NOT chart on this entry -- for MONITORING) 1 each PRN DAILY PRN MC SEE COMMENTS; Start 06/25/17 at 15:15; Stop 06/27/17 at 15:14 Furosemide (Lasix) 40 mg 1X ONCE IVP Last administered on 06/25/17 16:32; Start 06/25/17 at 15:30; Stop 06/25/17 at 15:37; Status DC Aspirin (Children'S Aspirin) 162 mg 1X ONCE PO Last administered on 06/25/17 16:33; Start 06/25/17 at 15:30; Stop 06/25/17 at 15:37; Status DC Ondansetron HCl (Zofran) 4 mg PRN Q8HRS PRN IV NAUSEA/VOMITING; Start 06/25/17 at 16:45; Stop 06/26/17 at 16:44 Furosemide (Lasix) 40 mg Q12HR IVP ; Start 06/25/17 at 21:00; Stop 06/25/17 at 22:39; Status DC Furosemide (Lasix) 40 mg Q12HR IVP Last administered on 06/26/17 09:37; Start 06/26/17 at 09:00 Active Scripts Active Reported Atorvastatin Calcium 20 Mg Tablet 20 Mg PO HS Cetirizine Hcl 10 Mg Tablet 10 Mg PO PRN DAILY PRN Multi-Day Vitamins (Multivitamin) 1 Each Tablet 1 Tab PO DAILY Vitals/I & O Vital Sign - Last 24 Hours 06/25/17 06/25/17 06/25/17 06/25/17 14:27 15:00 15:30 16:00 Temp 97.9 97.9 Pulse 143 134 136 133 Resp 20 22 22 20 B/P (MAP) 155/101 (119) 134/90 (105) 132/85 (101) 135/91 (106) Pulse Ox 91 94 95 95 O2 Delivery Room Air Room Air Room Air Room Air 06/25/17 06/25/17 06/25/17 06/25/17 16:30 17:00 17:30 18:00 Pulse 134 132 130 104 Resp 20 20 20 20 B/P (MAP) 130/87 (101) 160/91 (114) 123/71 (88) 118/82 (94) Pulse Ox 93 94 95 95 O2 Delivery Room Air Room Air Room Air Room Air 06/25/17 06/25/17 06/25/17 06/25/17 18:30 18:57 19:20 19:30 Temp 97.7 97.7 Pulse 99 98 98 139 Resp 20 20 22 20 B/P (MAP) 122/80 (94) 121/82 (95) 128/89 (102) 135/95 (108) Pulse Ox 95 95 95 97 O2 Delivery Room Air Room Air Room Air Room Air 06/25/17 06/25/17 06/25/17 06/26/17 19:30 21:00 23:00 03:05 Temp 97.7 97.6 98.0 97.7 97.6 98.0 Pulse 139 127 91 Resp 20 22 18 B/P (MAP) 135/95 (108) 135/91 (106) 116/87 (97) Pulse Ox 97 96 96 O2 Delivery Room Air Room Air Room Air Room Air 06/26/17 07:20 Temp 97.5 97.5 Pulse 139 Resp 22 B/P (MAP) 122/91 (101) Pulse Ox 98 O2 Delivery Room Air Intake and Output 06/25/17 06/25/17 06/26/17 15:00 23:00 07:00 Intake Total 320 ml Output Total 450 ml Balance -450 ml 320 ml GÓMEZ CHACON III DO Jun 26, 2017 10:01
[2017-06-26] MEDS ORDERED: METOPROLOL TART IMMED RELEASE 25 MG TABLET. PO ONE (10:30)
[2017-06-26 11:00] VITALS: BP 117/83
[2017-06-26 11:09] LABS: CHOLESTEROL/HDL RATIO 3.3
[2017-06-26 11:14] LABS: BILIRUBIN,URINE NEGATIVE (NEG); GLUCOSE,URINE NEGATIVE (NEG); NITRITE,URINE NEGATIVE (NEG); PROTEIN,URINE NEGATIVE (NEG-TRACE); UROBILINOGEN,URINE 0.2 mg/dL (0.2 mg/dL)
[2017-06-26 11:21] LABS: BACTERIA,URINE 0 /HPF (0-FEW); RBC,URINE 0 /HPF (0-2); SQUAMOUS EPITHELIAL CELL,UR FEW /LPF; WBC,URINE OCC /HPF (0-4)
--- NOTE | 2017-06-26 11:47 | RAD ---
Portable chest, 06/26/2017: History: Shortness of breath, congestive heart failure Comparison is made to yesterday's study. The heart is enlarged. There is calcific plaquing and tortuosity of the thoracic aorta. Mild patchy pulmonary opacities are unchanged. These were best defined on yesterday's CT study. There is pleural-parenchymal scarring in the right apex. There is persistent pleural thickening in the lateral costophrenic angles compatible with bilateral pleural fluid. No new pulmonary abnormality is seen. IMPRESSION: 1. Ongoing congestive heart failure with bilateral pleural effusions. 2. Stable bilateral parenchymal opacities.
--- NOTE | 2017-06-26 13:16 | PDOC ---
Provider Note Provider Note dictated PEGGY MONTEIRO MD Jun 26, 2017 13:16
--- NOTE | 2017-06-26 14:07 | CONS ---
DATE OF CONSULTATION: ATTENDING PHYSICIAN: Dr. Dias. REASON FOR CONSULTATION: Dyspnea, abnormal CT chest. HISTORY OF PRESENT ILLNESS: The patient is a pleasant 81-year-old female who has no significant past medical history. She presented to the hospital with increasing shortness of breath and some lower extremity edema. The patient was seen in the Emergency Room and was noted to have bilateral interstitial infiltrates consistent with CHF. [place] [id number]. The patient denies any cough, purulent sputum production or weight loss. No GI symptoms. She underwent CT chest done, which was also reviewed by me and there was no evidence of pulmonary embolism. There was cardiomegaly. There was bilateral lower lobe pleural effusion, right greater than left. There were moderate bilateral patchy infiltrates and interlobular septal thickening, more suggestive of pulmonary edema. There is also spiculated left upper lobe nodule which was 12 mm in size. She has been diuresed and her chest x-ray is showing mild improvement. I have been asked to see her for further evaluation. PAST MEDICAL HISTORY: Significant for history of breast cancer with right mastectomy when she was 32 years old. No significant history of tobacco use. PAST SURGICAL HISTORY: Right mastectomy. ALLERGIES: None. FAMILY HISTORY: Heart failure. SOCIAL HISTORY: No history of tobacco or drug use. MEDICATIONS: All reviewed as listed in the MRAD. REVIEW OF SYSTEMS: Twelve-point systems obtained, pertinent positives discussed in my history of present illness, otherwise noncontributory. All systems that were negative were reviewed as well. PHYSICAL EXAMINATION: GENERAL: She is awake, following commands. VITAL SIGNS: Blood pressure is stable, pulse ox 98% on room air. NECK: Supple. LUNGS: With crackles at the bases. CARDIOVASCULAR: Regular rate and rhythm. ABDOMEN: Soft, obese. EXTREMITIES: With trace pitting edema. LABORATORY DATA: Reviewed. White cell count 7.3, hemoglobin 13.5 and platelets are 284. BUN is 15, creatinine 0.8. Albumin is 3.2. IMPRESSION: 1. Dyspnea secondary to development of acute congestive heart failure. Radiographically and clinically improving. 2. Abnormal CT chest with bilateral infiltrates, bilateral pleural effusions and interlobular septal thickening. These are findings suggesting congestive heart failure, which is clinically improving. She also has a left upper lobe 12 mm small spiculated mass and the possibility of malignancy cannot be ruled out, but at this point, I will recommend treating congestive heart failure and following a CT chest in 4-6 weeks. 3. No significant history of tobacco use. 4. Clinically, less likely pneumonia. RECOMMENDATIONS: 1. Continue diuresis. 2. Obtain echocardiogram. 3. Repeat a CT chest in 4-6 weeks and if spiculated density persists, then we will do a PET scan. 4. P.r.n. oxygen. 5. Follow Cardiology recommendations. 6. Discussed with RN, we will follow along with you. PEGGY MONTEIRO MD DR: CANELO/seven JOB#: [id number] / [id number] MYRIAM
[2017-06-26 15:00] VITALS: BP 94/68
--- NOTE | 2017-06-26 16:57 | CARD ---
APPROVED REPORT EXAM: Two-dimensional and M-mode echocardiogram with Doppler and color Doppler. Other Information Quality : Good INDICATION Congestive Heart Failure 2D DIMENSIONS RVDd3.8 (2.9-3.5cm)Left Atrium(2D)4.8 (1.6-4.0cm) IVSd1.2 (0.7-1.1cm)Aortic Root(2D)2.9 (2.0-3.7cm) LVDd6.0 (3.9-5.9cm)LVOT Diameter2.2 (1.8-2.4cm) PWd1.1 (0.7-1.1cm)LVDs5.4 (2.5-4.0cm) FS (%) 7.0 %SV39.3 ml LVEF(%)15.0 (>50%) Aortic Valve AoV Peak Enrique.101.9cm/sAoV VTI12.5cm AO Peak GR.4.2mmHgLVOT VTI 7.90cm AO Mean GR.2mmHgAVA (VTI)2.40cm2 Mitral Valve MV E Sudkniup25.0cm/sMV DECEL [id number] MV A Xxgqofft37.7cm/sE/A Ratio1.2 TDI Lateral E' P. V4.63cm/sMedial E' P. V3.28cm/s E/Lateral E'14.9E/Medial E'21.0 Tricuspid Valve TR P. Otawjwky189us/sRAP [id number] TR Peak Gr.[id number] LEFT VENTRICLE The Left Ventricle is mildly dilated. There is mild concentric left ventricular hypertrophy. Left xu tricle ejection fraction is severely impaired. The Ejection Fraction is 10-15%. There is severe globa l hypokinesis of the left ventricle. Tissue Doppler imaging reveals severe left ventricular diastolic dysfunction. RIGHT VENTRICLE The right ventricle is normal size. RV Systolic function is mildly reduced. ATRIA The left atrium is mildly dilated. The right atrium is mildly dilated. The interatrial septum is inta ct with no evidence for an atrial septal defect or patent foramen ovale as noted on 2-D or Doppler im aging. AORTIC VALVE The aortic valve is calcified but opens well. Doppler and Color Flow revealed no significant aortic r egurgitation. There is no significant aortic valvular stenosis. MITRAL VALVE The mitral valve is calcified but opens well. There is no evidence of mitral valve prolapse. There is no mitral valve stenosis. Doppler and Color-flow revealed trace mitral regurgitation. TRICUSPID VALVE The tricuspid valve is normal in structure and function. Doppler and Color Flow revealed trace tricus pid regurgitation. There is mild pulmonary hypertension. The PA pressure was estimated at 35 mmHg. Th ere is no tricuspid valve stenosis. PULMONIC VALVE Doppler and Color Flow revealed trace pulmonic valvular regurgitation. There is no pulmonic valvular stenosis. GREAT VESSELS The aortic root is normal in size. The ascending aorta is mildly dilated at 3.5 cm. The IVC is dilate d and collapses >50% with inspiration. PERICARDIAL EFFUSION There is a trace circumferential pericardial effusion. Critical Notification Critical Value: No <Conclusion> Left ventricle ejection fraction is severely impaired. The Ejection Fraction is 10-15%. There is severe global hypokinesis of the left ventricle. RV Systolic function is mildly reduced. The ascending aorta is mildly dilated at 3.5 cm. There is a trace circumferential pericardial effusion.
[2017-06-26 19:20] VITALS: BP 112/79
[2017-06-26] MEDS: METOPROLOL TART IMMED RELEASE 25 MG TABLET. PO SCH (20:30)
[2017-06-26 23:15] VITALS: BP 110/68
[2017-06-27 03:20] VITALS: BP 109/64
[2017-06-27 05:20] LABS: BASO % 1 % (0-3); EOS % 2 % (0-3); HEMATOCRIT 39.9 % (36.0-47.0); HEMOGLOBIN 13.2 g/dL (12.0-15.5); LYMPH # 1.2 x10^3/uL (1.0-4.8); LYMPH % 19 % (24-48); MEAN CORPUSCULAR HEMOGLOBIN 27 pg (25-35); MEAN CORPUSCULAR HGB CONC 33 g/dL (31-37); MEAN CORPUSCULAR VOLUME 81 fL (79-100); MONO % 10 % (0-9); NEUT % 68 % (31-73); PLATELET COUNT 228 x10^3/uL (140-400); RED BLOOD COUNT 4.92 x10^6/uL (3.50-5.40); RED CELL DISTRIBUTION WIDTH 15.7 % (11.5-14.5); WHITE BLOOD COUNT 6.3 x10^3/uL (4.0-11.0)
[2017-06-27 05:33] LABS: CALCIUM 8.5 mg/dL (8.5-10.1); CREATININE 0.8 mg/dL (0.6-1.0); GFR 69.2; POTASSIUM 3.5 mmol/L (3.5-5.1)
[2017-06-27 07:15] VITALS: BP 102/72
--- NOTE | 2017-06-27 07:27 | RAD ---
Portable chest, 06/27/2017: History: Congestive heart failure Comparison is made to yesterday's study. The heart is enlarged. The pulmonary vascularity is at the upper limits of normal. There are mild patchy pulmonary opacities which are unchanged. There are stable small bilateral pleural effusions. There is no evidence of pneumothorax. No new abnormality is seen. IMPRESSION: No significant change since yesterday's study.
--- NOTE | 2017-06-27 10:51 | PDOC ---
CARDIO Progress Notes Date and Time Date of Service 06/27/2017 Time of Evaluation 1050 Subjective Subjective: No Chest Pain, No shortness of breath, No Palpitations, No Dizziness Vitals Vitals Vital Signs Date Time Temp Pulse Resp B/P (MAP) Pulse Ox O2 Delivery O2 Flow Rate FiO2 06/27/17 07:40 Room Air 06/27/17 07:15 97.5 89 102/72 (82) 95 97.5 06/27/17 03:20 18 Weight Weight [ ] Input and Output Intake and Output Intake and Output 06/27/17 07:00 Intake Total 500 ml Output Total 1350 ml Balance -850 ml Intake Oral 500 ml Output Urine Total 1350 ml # Voids 1 Laboratory Labs Laboratory Tests Test 06/27/17 04:45 White Blood Count 6.3 x10^3/uL (4.0-11.0) Red Blood Count 4.92 x10^6/uL (3.50-5.40) Hemoglobin 13.2 g/dL (12.0-15.5) Hematocrit 39.9 % (36.0-47.0) Mean Corpuscular Volume 81 fL (79-100) Mean Corpuscular Hemoglobin 27 pg (25-35) Mean Corpuscular Hemoglobin Concent 33 g/dL (31-37) Red Cell Distribution Width 15.7 % (11.5-14.5) Platelet Count 228 x10^3/uL (140-400) Neutrophils (%) (Auto) 68 % (31-73) Lymphocytes (%) (Auto) 19 % (24-48) Monocytes (%) (Auto) 10 % (0-9) Eosinophils (%) (Auto) 2 % (0-3) Basophils (%) (Auto) 1 % (0-3) Neutrophils # (Auto) 4.3 x10^3uL (1.8-7.7) Lymphocytes # (Auto) 1.2 x10^3/uL (1.0-4.8) Monocytes # (Auto) 0.6 x10^3/uL (0.0-1.1) Eosinophils # (Auto) 0.1 x10^3/uL (0.0-0.7) Basophils # (Auto) 0.0 x10^3/uL (0.0-0.2) Sodium Level 143 mmol/L (136-145) Potassium Level 3.5 mmol/L (3.5-5.1) Chloride Level 105 mmol/L (98-107) Carbon Dioxide Level 26 mmol/L (21-32) Anion Gap 12 (6-14) Blood Urea Nitrogen 17 mg/dL (7-20) Creatinine 0.8 mg/dL (0.6-1.0) Estimated GFR (Cockcroft-Gault) 69.2 Glucose Level 102 mg/dL (70-99) Calcium Level 8.5 mg/dL (8.5-10.1) Physical Exam HEENT: Neck Supple W Full Motion Chest: Symmetric LUNGS: Other (basilar crackles) Heart: S1S2, RRR (SR), murmurs (2/6 systolic murmur to LLS border) Abdomen: Soft N/T Extremities: No Calf Tenderness, Other (1+ bilateral LE pitting edema) Neurology: alert, oriented, follow commands Assessment Assessment 1. RUL mass: no immediate need for Bx. workup per pulmonary 2. Acute likely on chronic systolic CHF: tachyarrhythmia contributing but will need to rule out ischemia. CP free. 3. Tachyarrhythmia: notable for atrial flutter, still having paroxysmal episodes. 4. Cardiomyopathy: EF 10-15% 5. HTN: controlled 6. HLP: statin 7. HX of breast CA: in 1973 with mastectomy and treated with cobalt Recommendations 1. Continue with metoprolol, start on digoxin. 2. Continue on ECASA 81 mg and will start on eliquis 3. Continue with IV lasix and will monitor renal function and BP response. 4. Await MPI completion today for any further recommendation. 5. Will consider losartan or aldactone addition pending BP trend. Entresto is a consideration and will reeval as an outpt if pt is able to afford. 6. Will arrange for lifevest prior to DC VIRIDIANA HIDALGO APRN Jun 27, 2017 10:51
[2017-06-27 11:06] VITALS: BP 107/73
[2017-06-27] MEDS ORDERED: POTASSIUM CHLORIDE 20 MEQ TABLET.ER. PO ONE (12:00)
[2017-06-27] MEDS ORDERED: REGADENOSON 0.4 MG/5 ML DISP.SYRIN. IV ONE ×2 (12:42→12:45)
--- NOTE | 2017-06-27 13:03 | PDOC ---
PROGRESS NOTES Chief Complaint Chief Complaint CC SOB, CHF exacerbation Hypercholesterolemia Breast CA History of Present Illness History of Present Illness 81 y/o F with CC of SOB with CHF exacerbation PT was greeted at the bedside in pleasant spirits AO3 CXR showed b/l pleural effusion and congested pulmonary vasculature Repeated CXR scheduled for today Stress test today Started on metoprolol per cardio BNP 60816 on 06/25 Vitals Vitals Vital Signs Date Time Temp Pulse Resp B/P (MAP) Pulse Ox O2 Delivery O2 Flow Rate FiO2 06/27/17 11:06 97.5 94 18 107/73 (84) 96 Room Air 97.5 Physical Exam General: Alert, Oriented X3, Cooperative, No acute distress Heart: Regular rate (SR), Normal S1, Normal S2, Other (2/6 systolic murmur to LLS border) Lungs: Clear, Crackles Abdomen: Soft, No tenderness Extremities: No cyanosis, Other (1+ bilateral LE pitting edema) Skin: No breakdown, No significant lesion Labs LABS Laboratory Tests Test 06/27/17 04:45 White Blood Count 6.3 x10^3/uL (4.0-11.0) Red Blood Count 4.92 x10^6/uL (3.50-5.40) Hemoglobin 13.2 g/dL (12.0-15.5) Hematocrit 39.9 % (36.0-47.0) Mean Corpuscular Volume 81 fL (79-100) Mean Corpuscular Hemoglobin 27 pg (25-35) Mean Corpuscular Hemoglobin Concent 33 g/dL (31-37) Red Cell Distribution Width 15.7 % (11.5-14.5) Platelet Count 228 x10^3/uL (140-400) Neutrophils (%) (Auto) 68 % (31-73) Lymphocytes (%) (Auto) 19 % (24-48) Monocytes (%) (Auto) 10 % (0-9) Eosinophils (%) (Auto) 2 % (0-3) Basophils (%) (Auto) 1 % (0-3) Neutrophils # (Auto) 4.3 x10^3uL (1.8-7.7) Lymphocytes # (Auto) 1.2 x10^3/uL (1.0-4.8) Monocytes # (Auto) 0.6 x10^3/uL (0.0-1.1) Eosinophils # (Auto) 0.1 x10^3/uL (0.0-0.7) Basophils # (Auto) 0.0 x10^3/uL (0.0-0.2) Sodium Level 143 mmol/L (136-145) Potassium Level 3.5 mmol/L (3.5-5.1) Chloride Level 105 mmol/L (98-107) Carbon Dioxide Level 26 mmol/L (21-32) Anion Gap 12 (6-14) Blood Urea Nitrogen 17 mg/dL (7-20) Creatinine 0.8 mg/dL (0.6-1.0) Estimated GFR (Cockcroft-Gault) 69.2 Glucose Level 102 mg/dL (70-99) Calcium Level 8.5 mg/dL (8.5-10.1) Review of Systems Review of Systems pt did not complain of any pain pt appeared anxious for stress test Assessment and Plan Assessmemt and Plan CC SOB, CHF exacerbation Hypercholesterolemia Breast CA PLAN -Started on metoprolol -Cont lasix -TSH, LIPID PANEL, U/A PER CARDIO -F/U CXR today -Stress test today -D/C OK IF CARDIO APPROVES Problems: Comment Review of Relevant I have reviewed the following items george (where applicable) has been applied. Labs Laboratory Tests Test 06/25/17 14:38 06/25/17 22:45 06/26/17 04:45 06/26/17 10:12 White Blood Count 7.3 x10^3/uL (4.0-11.0) Red Blood Count 4.93 x10^6/uL (3.50-5.40) Hemoglobin 13.5 g/dL (12.0-15.5) Hematocrit 41.5 % (36.0-47.0) Mean Corpuscular Volume 84 fL (79-100) Mean Corpuscular Hemoglobin 27 pg (25-35) Mean Corpuscular Hemoglobin Concent 33 g/dL (31-37) Red Cell Distribution Width 15.4 % (11.5-14.5) Platelet Count 284 x10^3/uL (140-400) Neutrophils (%) (Auto) 77 % (31-73) Lymphocytes (%) (Auto) 14 % (24-48) Monocytes (%) (Auto) 8 % (0-9) Eosinophils (%) (Auto) 1 % (0-3) Basophils (%) (Auto) 1 % (0-3) Neutrophils # (Auto) 5.7 x10^3uL (1.8-7.7) Lymphocytes # (Auto) 1.0 x10^3/uL (1.0-4.8) Monocytes # (Auto) 0.5 x10^3/uL (0.0-1.1) Eosinophils # (Auto) 0.0 x10^3/uL (0.0-0.7) Basophils # (Auto) 0.1 x10^3/uL (0.0-0.2) Sodium Level 140 mmol/L (136-145) 144 mmol/L (136-145) Potassium Level 4.3 mmol/L (3.5-5.1) 4.0 mmol/L (3.5-5.1) Chloride Level 106 mmol/L (98-107) 106 mmol/L (98-107) Carbon Dioxide Level 25 mmol/L (21-32) 26 mmol/L (21-32) Anion Gap 9 (6-14) 12 (6-14) Blood Urea Nitrogen 16 mg/dL (7-20) 15 mg/dL (7-20) Creatinine 0.9 mg/dL (0.6-1.0) 0.8 mg/dL (0.6-1.0) Estimated GFR (Cockcroft-Gault) 60.4 69.2 BUN/Creatinine Ratio 18 (6-20) 19 (6-20) Glucose Level 128 mg/dL (70-99) 96 mg/dL (70-99) Calcium Level 8.4 mg/dL (8.5-10.1) 8.5 mg/dL (8.5-10.1) Total Bilirubin 0.7 mg/dL (0.2-1.0) 0.5 mg/dL (0.2-1.0) Aspartate Amino Transf (AST/SGOT) 26 U/L (15-37) 22 U/L (15-37) Alanine Aminotransferase (ALT/SGPT) 35 U/L (14-59) 27 U/L (14-59) Alkaline Phosphatase 78 U/L (46-116) 71 U/L (46-116) Troponin I Quantitative 0.019 ng/mL (0.000-0.055) 0.043 ng/mL (0.000-0.055) 0.042 ng/mL (0.000-0.055) IC-Aab-L-Type Natriuretic Peptide 16571 pg/mL (0-449) Total Protein 6.8 g/dL (6.4-8.2) 5.8 g/dL (6.4-8.2) Albumin 3.5 g/dL (3.4-5.0) 3.2 g/dL (3.4-5.0) Albumin/Globulin Ratio 1.1 (1.0-1.7) 1.2 (1.0-1.7) Magnesium Level 2.0 mg/dL (1.8-2.4) Triglycerides Level 91 mg/dL (0-150) Cholesterol Level 147 mg/dL (0-200) LDL Cholesterol, Calculated 85 mg/dL (0-100) VLDL Cholesterol, Calculated 18 mg/dL (0-40) Non-HDL Cholesterol Calculated 103 mg/dL (0-129) HDL Cholesterol 44 mg/dL (40-60) Cholesterol/HDL Ratio 3.3 Thyroid Stimulating Hormone (TSH) 3.298 uIU/mL (0.358-3.74) Urine Collection Type Unknown Urine Color Yellow Urine Clarity Clear Urine pH 7.0 Urine Specific [place] <=1.005 Urine Protein Negative mg/dL (NEG-TRACE) Urine Glucose (UA) Negative mg/dL (NEG) Urine Ketones (Stick) Negative mg/dL (NEG) Urine Blood Negative (NEG) Urine Nitrite Negative (NEG) Urine Bilirubin Negative (NEG) Urine Urobilinogen Dipstick 0.2 mg/dL (0.2 mg/dL) Urine Leukocyte Esterase Trace (NEG) Urine RBC 0 /HPF (0-2) Urine WBC Occ /HPF (0-4) Urine Squamous Epithelial Cells Few /LPF Urine Bacteria 0 /HPF (0-FEW) Test 06/27/17 04:45 White Blood Count 6.3 x10^3/uL (4.0-11.0) Red Blood Count 4.92 x10^6/uL (3.50-5.40) Hemoglobin 13.2 g/dL (12.0-15.5) Hematocrit 39.9 % (36.0-47.0) Mean Corpuscular Volume 81 fL (79-100) Mean Corpuscular Hemoglobin 27 pg (25-35) Mean Corpuscular Hemoglobin Concent 33 g/dL (31-37) Red Cell Distribution Width 15.7 % (11.5-14.5) Platelet Count 228 x10^3/uL (140-400) Neutrophils (%) (Auto) 68 % (31-73) Lymphocytes (%) (Auto) 19 % (24-48) Monocytes (%) (Auto) 10 % (0-9) Eosinophils (%) (Auto) 2 % (0-3) Basophils (%) (Auto) 1 % (0-3) Neutrophils # (Auto) 4.3 x10^3uL (1.8-7.7) Lymphocytes # (Auto) 1.2 x10^3/uL (1.0-4.8) Monocytes # (Auto) 0.6 x10^3/uL (0.0-1.1) Eosinophils # (Auto) 0.1 x10^3/uL (0.0-0.7) Basophils # (Auto) 0.0 x10^3/uL (0.0-0.2) Sodium Level 143 mmol/L (136-145) Potassium Level 3.5 mmol/L (3.5-5.1) Chloride Level 105 mmol/L (98-107) Carbon Dioxide Level 26 mmol/L (21-32) Anion Gap 12 (6-14) Blood Urea Nitrogen 17 mg/dL (7-20) Creatinine 0.8 mg/dL (0.6-1.0) Estimated GFR (Cockcroft-Gault) 69.2 Glucose Level 102 mg/dL (70-99) Calcium Level 8.5 mg/dL (8.5-10.1) Laboratory Tests Test 06/27/17 04:45 White Blood Count 6.3 x10^3/uL (4.0-11.0) Red Blood Count 4.92 x10^6/uL (3.50-5.40) Hemoglobin 13.2 g/dL (12.0-15.5) Hematocrit 39.9 % (36.0-47.0) Mean Corpuscular Volume 81 fL (79-100) Mean Corpuscular Hemoglobin 27 pg (25-35) Mean Corpuscular Hemoglobin Concent 33 g/dL (31-37) Red Cell Distribution Width 15.7 % (11.5-14.5) Platelet Count 228 x10^3/uL (140-400) Neutrophils (%) (Auto) 68 % (31-73) Lymphocytes (%) (Auto) 19 % (24-48) Monocytes (%) (Auto) 10 % (0-9) Eosinophils (%) (Auto) 2 % (0-3) Basophils (%) (Auto) 1 % (0-3) Neutrophils # (Auto) 4.3 x10^3uL (1.8-7.7) Lymphocytes # (Auto) 1.2 x10^3/uL (1.0-4.8) Monocytes # (Auto) 0.6 x10^3/uL (0.0-1.1) Eosinophils # (Auto) 0.1 x10^3/uL (0.0-0.7) Basophils # (Auto) 0.0 x10^3/uL (0.0-0.2) Sodium Level 143 mmol/L (136-145) Potassium Level 3.5 mmol/L (3.5-5.1) Chloride Level 105 mmol/L (98-107) Carbon Dioxide Level 26 mmol/L (21-32) Anion Gap 12 (6-14) Blood Urea Nitrogen 17 mg/dL (7-20) Creatinine 0.8 mg/dL (0.6-1.0) Estimated GFR (Cockcroft-Gault) 69.2 Glucose Level 102 mg/dL (70-99) Calcium Level 8.5 mg/dL (8.5-10.1) Medications Current Medications Clonidine HCl (Catapres) 0.2 mg 1X ONCE PO ; Start 06/25/17 at 15:00; Stop at 15:01; Status DC Iohexol (Omnipaque 300 Mg/ml) 75 ml 1X ONCE IV Last administered on 06/25/17t 15:56; Start 06/25/17 at 15:15; Stop 06/25/17 at 15:16; Status DC Info (Do NOT chart on this entry -- for MONITORING) 1 each PRN DAILY PRN MC SEE COMMENTS; Start 06/25/17 at 15:15; Stop 06/27/17 at 15:14 Furosemide (Lasix) 40 mg 1X ONCE IVP Last administered on 06/25/17 16:32; Start 06/25/17 at 15:30; Stop 06/25/17 at 15:37; Status DC Aspirin (Children'S Aspirin) 162 mg 1X ONCE PO Last administered on 06/25/17 16:33; Start 06/25/17 at 15:30; Stop 06/25/17 at 15:37; Status DC Ondansetron HCl (Zofran) 4 mg PRN Q8HRS PRN IV NAUSEA/VOMITING; Start 06/25/17 at 16:45; Stop 06/26/17 at 16:44; Status DC Furosemide (Lasix) 40 mg Q12HR IVP ; Start 06/25/17 at 21:00; Stop 06/25/17 at 22:39; Status DC Furosemide (Lasix) 40 mg Q12HR IVP Last administered on 06/26/17 20:29; Start 06/26/17 at 09:00 Metoprolol Tartrate (Lopressor) 25 mg 1X ONCE PO Last administered on 11:08; Start 06/26/17 at 10:30; Stop 06/26/17 at 10:31; Status DC Metoprolol Tartrate (Lopressor) 25 mg BID PO Last administered on 06/26/17 20: 30; Start 06/26/17 at 21:00 Aspirin (Ecotrin) 81 mg DAILYWBKFT PO ; Start 06/27/17 at 08:00 Apixaban (Eliquis) 5 mg BID PO ; Start 06/27/17 at 11:00 Info (Anti-Coagulation Monitoring By Pharmacy) 1 each PRN DAILY PRN MC SEE COMMENTS; Start 06/27/17 at 10:45 Digoxin (Lanoxin) 125 mcg DAILY PO ; Start 06/28/17 at 09:00 Atorvastatin Calcium (Lipitor) 20 mg QHS PO ; Start 06/27/17 at 21:00 Potassium Chloride (Klor-Con) 40 meq 1X ONCE PO ; Start 06/27/17 at 12:00; Stop 06/27/17 at 12:07; Status DC Potassium Chloride (Klor-Con) 20 meq DAILYWBKFT PO ; Start 06/28/17 at 08:00 Regadenoson (Lexiscan) 0.4 mg 1X ONCE IV ; Start 06/27/17 at 12:45; Stop at 12:46; Status DC Active Scripts Active Reported Atorvastatin Calcium 20 Mg Tablet 20 Mg PO HS Cetirizine Hcl 10 Mg Tablet 10 Mg PO PRN DAILY PRN Multi-Day Vitamins (Multivitamin) 1 Each Tablet 1 Tab PO DAILY Vitals/I & O Vital Sign - Last 24 Hours 06/26/17 06/26/17 06/26/17 06/26/17 15:00 19:20 20:00 20:30 Temp 97.9 97.8 97.9 97.8 Pulse 86 137 94 Resp 20 18 B/P (MAP) 94/68 (77) 112/79 (90) 116/78 Pulse Ox 96 93 O2 Delivery Room Air Room Air Room Air 06/26/17 06/27/17 06/27/17 06/27/17 23:15 03:20 07:15 07:40 Temp 97.6 97.4 97.5 97.6 97.4 97.5 Pulse 126 92 89 Resp 18 18 B/P (MAP) 110/68 (82) 109/64 (79) 102/72 (82) Pulse Ox 97 98 95 O2 Delivery Room Air Room Air Room Air Room Air 06/27/17 11:06 Temp 97.5 97.5 Pulse 94 Resp 18 B/P (MAP) 107/73 (84) Pulse Ox 96 O2 Delivery Room Air Intake and Output 06/26/17 06/26/17 06/27/17 15:00 23:00 07:00 Intake Total 200 ml 300 ml 0 ml Output Total 650 ml 700 ml 0 ml Balance -450 ml -400 ml 0 ml GÓMEZ CHACON III DO Jun 27, 2017 13:03
[2017-06-27] MEDS: FUROSEMIDE 40 MG/4 ML VIAL. IVP SCH ×2 (13:13→21:19)
[2017-06-27] MEDS: ASPIRIN ENTERIC COATED 81 MG TABLET.DR. PO SCH (13:13)
[2017-06-27] MEDS: METOPROLOL TART IMMED RELEASE 25 MG TABLET. PO SCH ×2 (13:18→21:18)
[2017-06-27] MEDS: APIXABAN 5 MG TABLET. PO SCH ×2 (13:26→21:18)
[2017-06-27] MEDS ORDERED: ATOR20TA58 PO (13:31)
--- NOTE | 2017-06-27 14:56 | PDOC ---
PULMONARY PROGRESS NOTES Subjective no soa Vitals Vital Signs Date Time Temp Pulse Resp B/P (MAP) Pulse Ox O2 Delivery O2 Flow Rate FiO2 06/27/17 13:18 111 123/79 06/27/17 11:06 97.5 18 96 Room Air 97.5 General: Alert, No acute distress Lungs: Crackles (bases) Cardiovascular: S1 Abdomen: Soft Neuro Exam: Alert Extremities: No Edema Skin: Warm Labs Laboratory Tests Test 06/25/17 22:45 06/26/17 04:45 06/26/17 10:12 06/27/17 04:45 Troponin I Quantitative 0.043 ng/mL (0.000-0.055) 0.042 ng/mL (0.000-0.055) Sodium Level 144 mmol/L (136-145) 143 mmol/L (136-145) Potassium Level 4.0 mmol/L (3.5-5.1) 3.5 mmol/L (3.5-5.1) Chloride Level 106 mmol/L (98-107) 105 mmol/L (98-107) Carbon Dioxide Level 26 mmol/L (21-32) 26 mmol/L (21-32) Anion Gap 12 (6-14) 12 (6-14) Blood Urea Nitrogen 15 mg/dL (7-20) 17 mg/dL (7-20) Creatinine 0.8 mg/dL (0.6-1.0) 0.8 mg/dL (0.6-1.0) Estimated GFR (Cockcroft-Gault) 69.2 69.2 BUN/Creatinine Ratio 19 (6-20) Glucose Level 96 mg/dL (70-99) 102 mg/dL (70-99) Calcium Level 8.5 mg/dL (8.5-10.1) 8.5 mg/dL (8.5-10.1) Magnesium Level 2.0 mg/dL (1.8-2.4) Total Bilirubin 0.5 mg/dL (0.2-1.0) Aspartate Amino Transf (AST/SGOT) 22 U/L (15-37) Alanine Aminotransferase (ALT/SGPT) 27 U/L (14-59) Alkaline Phosphatase 71 U/L (46-116) Total Protein 5.8 g/dL (6.4-8.2) Albumin 3.2 g/dL (3.4-5.0) Albumin/Globulin Ratio 1.2 (1.0-1.7) Triglycerides Level 91 mg/dL (0-150) Cholesterol Level 147 mg/dL (0-200) LDL Cholesterol, Calculated 85 mg/dL (0-100) VLDL Cholesterol, Calculated 18 mg/dL (0-40) Non-HDL Cholesterol Calculated 103 mg/dL (0-129) HDL Cholesterol 44 mg/dL (40-60) Cholesterol/HDL Ratio 3.3 Thyroid Stimulating Hormone (TSH) 3.298 uIU/mL (0.358-3.74) Urine Collection Type Unknown Urine Color Yellow Urine Clarity Clear Urine pH 7.0 Urine Specific [place] <=1.005 Urine Protein Negative mg/dL (NEG-TRACE) Urine Glucose (UA) Negative mg/dL (NEG) Urine Ketones (Stick) Negative mg/dL (NEG) Urine Blood Negative (NEG) Urine Nitrite Negative (NEG) Urine Bilirubin Negative (NEG) Urine Urobilinogen Dipstick 0.2 mg/dL (0.2 mg/dL) Urine Leukocyte Esterase Trace (NEG) Urine RBC 0 /HPF (0-2) Urine WBC Occ /HPF (0-4) Urine Squamous Epithelial Cells Few /LPF Urine Bacteria 0 /HPF (0-FEW) White Blood Count 6.3 x10^3/uL (4.0-11.0) Red Blood Count 4.92 x10^6/uL (3.50-5.40) Hemoglobin 13.2 g/dL (12.0-15.5) Hematocrit 39.9 % (36.0-47.0) Mean Corpuscular Volume 81 fL (79-100) Mean Corpuscular Hemoglobin 27 pg (25-35) Mean Corpuscular Hemoglobin Concent 33 g/dL (31-37) Red Cell Distribution Width 15.7 % (11.5-14.5) Platelet Count 228 x10^3/uL (140-400) Neutrophils (%) (Auto) 68 % (31-73) Lymphocytes (%) (Auto) 19 % (24-48) Monocytes (%) (Auto) 10 % (0-9) Eosinophils (%) (Auto) 2 % (0-3) Basophils (%) (Auto) 1 % (0-3) Neutrophils # (Auto) 4.3 x10^3uL (1.8-7.7) Lymphocytes # (Auto) 1.2 x10^3/uL (1.0-4.8) Monocytes # (Auto) 0.6 x10^3/uL (0.0-1.1) Eosinophils # (Auto) 0.1 x10^3/uL (0.0-0.7) Basophils # (Auto) 0.0 x10^3/uL (0.0-0.2) Laboratory Tests Test 06/27/17 04:45 White Blood Count 6.3 x10^3/uL (4.0-11.0) Red Blood Count 4.92 x10^6/uL (3.50-5.40) Hemoglobin 13.2 g/dL (12.0-15.5) Hematocrit 39.9 % (36.0-47.0) Mean Corpuscular Volume 81 fL (79-100) Mean Corpuscular Hemoglobin 27 pg (25-35) Mean Corpuscular Hemoglobin Concent 33 g/dL (31-37) Red Cell Distribution Width 15.7 % (11.5-14.5) Platelet Count 228 x10^3/uL (140-400) Neutrophils (%) (Auto) 68 % (31-73) Lymphocytes (%) (Auto) 19 % (24-48) Monocytes (%) (Auto) 10 % (0-9) Eosinophils (%) (Auto) 2 % (0-3) Basophils (%) (Auto) 1 % (0-3) Neutrophils # (Auto) 4.3 x10^3uL (1.8-7.7) Lymphocytes # (Auto) 1.2 x10^3/uL (1.0-4.8) Monocytes # (Auto) 0.6 x10^3/uL (0.0-1.1) Eosinophils # (Auto) 0.1 x10^3/uL (0.0-0.7) Basophils # (Auto) 0.0 x10^3/uL (0.0-0.2) Sodium Level 143 mmol/L (136-145) Potassium Level 3.5 mmol/L (3.5-5.1) Chloride Level 105 mmol/L (98-107) Carbon Dioxide Level 26 mmol/L (21-32) Anion Gap 12 (6-14) Blood Urea Nitrogen 17 mg/dL (7-20) Creatinine 0.8 mg/dL (0.6-1.0) Estimated GFR (Cockcroft-Gault) 69.2 Glucose Level 102 mg/dL (70-99) Calcium Level 8.5 mg/dL (8.5-10.1) Medications Active Scripts Medications Dose Route/Sig Max Daily Dose Days Date Category Atorvastatin Calcium 20 Mg Tablet 20 Mg PO HS 06/27/17 Reported Atorvastatin Calcium 20 Mg Tablet 20 Mg PO HS 06/26/17 Reported Cetirizine Hcl 10 Mg Tablet 10 Mg PO PRN DAILY PRN 06/26/17 Reported Multi-Day Vitamins (Multivitamin) 1 Each Tablet 1 Tab PO DAILY 06/26/17 Reported Impression . 1. Dyspnea secondary to development of acute congestive heart failure. clinically improving. 2. Abnormal CT chest with bilateral infiltrates, bilateral pleural effusions and interlobular septal thickening. These are findings suggesting congestive heart failure, which is clinically improving. She also has a left upper lobe 12 mm small spiculated mass and the possibility of malignancy cannot be ruled out, but at this point, I will recommend treating congestive heart failure and following a CT chest in 4-6 weeks./ PET as OP 3. No significant history of tobacco use. 4. Clinically, less likely pneumonia. Plan . 1. Continue diuresis. 2. echocardiogram. 3. Repeat a CT chest in 4-6 weeks / PET scan as OP 4. P.r.n. oxygen. 5. Follow Cardiology recommendations. 6. remote h/o breast cancer, check tumor marker PEGGY MONTEIRO MD Jun 27, 2017 14:56
[2017-06-27 15:18] VITALS: BP 118/67
--- NOTE | 2017-06-27 16:04 | RAD ---
APPROVED REPORT Test Type: Pharmacological Stress Nurse/Tech: Olivia Solorio R.N. Test Indications: Dyspnea, CHF Cardiac History: CHF Medications: SEE EHR Medical History: SEE EHR Resting ECG: SR PVC's Resting Heart Rate: 83 bpm Resting Blood Pressure: 116/62mmHg Pretest Chest Pain: None Nurse/Tech Notes S1S2, lungs CTA, denied chest pain and SOA. Denied dizziness Consent: The procedure was explained to the patient in lay terms. Informed consent was witnessed. Samuel eout was entered into [employer]. History and Stress Test performed by Rebecca Solorio R.N. Pharm. Details Pharmacologic stress testing was performed using 0.4mg per 5ml of regadenoson given intravenously ove r 7-10 seconds. Stress Symptoms Pt was asymptomatic but had multiple runs of tachycardia POST EXERCISE Reason for Termination: Infusion complete Max HR: 149 bpm Max Blood Pressure: 111/68mmHg Blood Pressure response to exercise: Normal blood pressure response during stress. Heart Rate response to exercise: Abnormal response Chest Pain: No. Arrhythmia: Yes. Multiple runs of tachycardia ST Change: No. INTERPRETATION Stress EKG Conclusion: The resting EKG shows a sinus rhythm with incomplete right bundle branch block and nonspecific ST-T wave changes. The stress EKG shows no significant changes from baseline. No EKG evidence of stress-induced ischemia. Imaging Protocol IMAGE PROTOCOL: Rest Tc-99m/stress Tc-99m 1 day Rest: Stress: Viability: Radiopharm.Tc99m TexfkbtxxPx32a Sestamibi Bwru50fHu 33.7mCi Duration 15min. 10min. Img Date 06/27/2017 06/27/2017 Inj-Img Aspr11lqv. 60min. Rest Admin Site:IV - Left AntecubitalAdministrator:RT Catracho (R)(N) Stress Admin Site: IV - Left AntecubitalAdministrator: JAI Izaguirre STRESS DATA End Diast. Vol.238.0mlAv. Heart Cjtz970.0bpm End Syst. Vol.184.0mlCO Index BSA0.0L/min Myocardial Awmz052.0gEject. Kzdsfinh41.0% Stress Rates Pk. Fill Rate1.56EDV/secLVtime Pk. Fill 111.65msec Pk. Empty Rate1.85ESV/secLVtime Pk. Mrgqe497.12msec /3 Pk. Fill0.76EDV/sec Stress Scores Regional WT3.00Summed WT48.00 Regional WM3.00Summed WM53.00 LV Perfusion The stress scans showed mild inferior wall thickening. The rest scans show more pronounced inferior wall thinning Nuclear imaging is negative for reversible ischemia but shows a fixed inferior wall defect. Wall Motion LV systolic function is globally severely decreased with an ejection fraction of 23%. LV Perf. Quant 17 Seg. SSS9.00 17 Seg. SRS13.00 17 Seg. SDS0.00 Stress Defect Extent (% LAD)0.00Rest Defect Extent (% LAD)3.10Rev. Defect Extent (% LAD)0.00 Stress Defect Extent (% LCX) 23.80Rest Defect Extent (% LCX)28.80Rev. Defect Extent (% LCX)7.50 Stress Defect Extent (% RCA)33.30Rest Defect Extent (% RCA)65.60Rev. Defect Extent (% RCA)1.10 Stress Defect Extent (% NICOLE)13.00Rest Defect Extent (% NICOLE)27.60Rev. Defect Extent (% NICOLE)1.50 Conclusion 1. Abnormal resting EKG but no EKG evidence of stress-induced ischemia. 2. Nuclear imaging shows no significant reversible ischemia but a fixed inferior wall defect consiste nt with a possible past infarct. 3. LV systolic function is severely decreased globally with ejection fraction of 23%. 4. Moderate risk Lexiscan nuclear stress test on the basis of poor LV function.
[2017-06-27 19:25] VITALS: BP 101/64
[2017-06-27] MEDS: ATORVASTATIN CALCIUM 20 MG TABLET PO SCH (21:18)
[2017-06-27 23:25] VITALS: BP 100/74
[2017-06-28] VITALS (15 sets, daily range): BP systolic 77–103; BP diastolic 60–78
[2017-06-28 08:38] LABS: BASO # 0.1 x10^3/uL (0.0-0.2); BASO % 1 % (0-3); EOS % 2 % (0-3); HEMATOCRIT 42.3 % (36.0-47.0); HEMOGLOBIN 13.7 g/dL (12.0-15.5); LYMPH # 1.3 x10^3/uL (1.0-4.8); LYMPH % 19 % (24-48); MEAN CORPUSCULAR HEMOGLOBIN 27 pg (25-35); MEAN CORPUSCULAR HGB CONC 32 g/dL (31-37); MEAN CORPUSCULAR VOLUME 83 fL (79-100); MONO % 10 % (0-9); NEUT % 68 % (31-73); PLATELET COUNT 245 x10^3/uL (140-400); RED CELL DISTRIBUTION WIDTH 15.4 % (11.5-14.5); WHITE BLOOD COUNT 6.7 x10^3/uL (4.0-11.0)
[2017-06-28 08:55] LABS: CALCIUM 8.7 mg/dL (8.5-10.1); CREATININE 0.9 mg/dL (0.6-1.0); GFR 60.4; POTASSIUM 3.9 mmol/L (3.5-5.1)
[2017-06-28] MEDS: METOPROLOL TART IMMED RELEASE 25 MG TABLET. PO SCH (09:00)
--- NOTE | 2017-06-28 09:02 | RAD ---
Chest radiograph 06/28/2017 at 0655 hours Indication: Congestive heart failure Comparison: Chest radiograph 06/27/2017 Technique: Single portable frontal view of the chest is provided. Findings: There is similar appearance of the cardiac mediastinal silhouette. There is improved aeration of the right middle lobe with residual patchy density along the lateral right middle lobe. Biapical pleural parenchymal scarring is noted. There is suggestion of mild pulmonary emphysema. Trace bilateral pleural effusions are present, improved on the left. There is a stable 9 mm nodular opacity in the left upper lobe. No pulmonary vascular congestion or pneumothorax. Impression: Improved aeration of the right middle lobe with minimal residual patchy airspace disease. Trace bilateral pleural effusions, with interval improvement of the left effusion.
[2017-06-28] MEDS: DIGOXIN 125 MCG TABLET. PO SCH (09:17)
[2017-06-28] MEDS: ASPIRIN ENTERIC COATED 81 MG TABLET.DR. PO SCH (09:17)
[2017-06-28] MEDS: POTASSIUM CHLORIDE 20 MEQ TABLET.ER. PO SCH (09:17)
[2017-06-28] MEDS: APIXABAN 5 MG TABLET. PO SCH ×2 (09:17→21:35)
[2017-06-28] MEDS: FUROSEMIDE 40 MG/4 ML VIAL. IVP SCH (09:18)
--- NOTE | 2017-06-28 10:34 | PDOC ---
VIRID[employer]NA [employer] 06/28/17 1034: CARDIO Progress Notes Date and Time Date of Service 06/28/2017 Time of Evaluation 1010 Subjective Subjective: No Chest Pain, No shortness of breath, No Palpitations, No Dizziness Vitals Vitals Vital Signs Date Time Temp Pulse Resp B/P (MAP) Pulse Ox O2 Delivery O2 Flow Rate FiO2 06/28/17 09:17 87 97/66 06/28/17 07:15 97.3 20 96 Room Air 97.3 Weight Weight [ ] Input and Output Intake and Output Intake and Output 06/28/17 07:00 Intake Total 720 ml Output Total 1200 ml Balance -480 ml Intake Oral 720 ml Output Urine Total 1200 ml # Bowel Movements 1 Laboratory Labs Laboratory Tests Test 06/28/17 07:50 White Blood Count 6.7 x10^3/uL (4.0-11.0) Red Blood Count 5.10 x10^6/uL (3.50-5.40) Hemoglobin 13.7 g/dL (12.0-15.5) Hematocrit 42.3 % (36.0-47.0) Mean Corpuscular Volume 83 fL (79-100) Mean Corpuscular Hemoglobin 27 pg (25-35) Mean Corpuscular Hemoglobin Concent 32 g/dL (31-37) Red Cell Distribution Width 15.4 % (11.5-14.5) Platelet Count 245 x10^3/uL (140-400) Neutrophils (%) (Auto) 68 % (31-73) Lymphocytes (%) (Auto) 19 % (24-48) Monocytes (%) (Auto) 10 % (0-9) Eosinophils (%) (Auto) 2 % (0-3) Basophils (%) (Auto) 1 % (0-3) Neutrophils # (Auto) 4.5 x10^3uL (1.8-7.7) Lymphocytes # (Auto) 1.3 x10^3/uL (1.0-4.8) Monocytes # (Auto) 0.7 x10^3/uL (0.0-1.1) Eosinophils # (Auto) 0.1 x10^3/uL (0.0-0.7) Basophils # (Auto) 0.1 x10^3/uL (0.0-0.2) Sodium Level 144 mmol/L (136-145) Potassium Level 3.9 mmol/L (3.5-5.1) Chloride Level 105 mmol/L (98-107) Carbon Dioxide Level 28 mmol/L (21-32) Anion Gap 11 (6-14) Blood Urea Nitrogen 19 mg/dL (7-20) Creatinine 0.9 mg/dL (0.6-1.0) Estimated GFR (Cockcroft-Gault) 60.4 Glucose Level 96 mg/dL (70-99) Calcium Level 8.7 mg/dL (8.5-10.1) Magnesium Level 2.2 mg/dL (1.8-2.4) Physical Exam HEENT: Neck Supple W Full Motion Chest: Symmetric LUNGS: Other (faint basilar crackles) Heart: S1S2, RRR (Atrial flutter with RVR), murmurs (2/6 systolic murmur to LLS border) Abdomen: Soft N/T Extremities: No Calf Tenderness, Other (1+ bilateral LE pitting edema) Neurology: alert, oriented, follow commands Assessment Assessment 1. Acute diastolic/systolic dysfunction: compensated. NYHA 1-2 2. RUL mass: pulmonary following. 3. PAflutter: presently with sustained RVR 4. HTN: controlled 5. HLP: statin 6. 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 CAD: MPI noted with fixed inferior wall defect likely with prior infarct. Recommendations 1. Arrange for Lifevest 2. ECASA, Eliquis, Digoxin, aldactone, toprol. lasix. 3. Amiodarone drip overnight and transition to po in am. 4. Follow up in 2 weeks SHERRY PULIDO MD 06/29/17 1132: CARDIO Progress Notes Assessment Assessment Patient seen and examined 06/28/17. Agree with [employer]'s assessment and plan. Cardiomyopathy clinically well compensated. Lifevest being arranged for primary prevention of SCD Agree with intravenous amiodarone for atrial flutter VIRIDIANA HIDALGO APRN Jun 28, 2017 10:34 SHERRY PULIDO MD Jun 29, 2017 11:32
--- NOTE | 2017-06-28 11:03 | PDOC ---
PROGRESS NOTES Chief Complaint Chief Complaint CC SOB, CHF exacerbation Hypercholesterolemia Breast CA History of Present Illness History of Present Illness 81 y/o F with CC of SOB with CHF exacerbation alert, talkative, no complaint HR from 88 to 130, into afib RVR and out in minutes, CXR showed b/l pleural effusion and congested pulmonary vasculature Stress test OK, EF better under stress, Started on metoprolol per cardio Vitals Vitals Vital Signs Date Time Temp Pulse Resp B/P (MAP) Pulse Ox O2 Delivery O2 Flow Rate FiO2 06/28/17 09:17 87 97/66 06/28/17 07:15 97.3 20 96 Room Air 97.3 Physical Exam General: Alert, Oriented X3, Cooperative, No acute distress Heart: Regular rate (SR), Normal S1, Normal S2, Other (2/6 systolic murmur to LLS border) Lungs: Crackles (bases) Abdomen: Soft, No tenderness Extremities: No cyanosis, Other (1+ bilateral LE pitting edema) Skin: No breakdown, No significant lesion Labs LABS Laboratory Tests Test 06/28/17 07:50 White Blood Count 6.7 x10^3/uL (4.0-11.0) Red Blood Count 5.10 x10^6/uL (3.50-5.40) Hemoglobin 13.7 g/dL (12.0-15.5) Hematocrit 42.3 % (36.0-47.0) Mean Corpuscular Volume 83 fL (79-100) Mean Corpuscular Hemoglobin 27 pg (25-35) Mean Corpuscular Hemoglobin Concent 32 g/dL (31-37) Red Cell Distribution Width 15.4 % (11.5-14.5) Platelet Count 245 x10^3/uL (140-400) Neutrophils (%) (Auto) 68 % (31-73) Lymphocytes (%) (Auto) 19 % (24-48) Monocytes (%) (Auto) 10 % (0-9) Eosinophils (%) (Auto) 2 % (0-3) Basophils (%) (Auto) 1 % (0-3) Neutrophils # (Auto) 4.5 x10^3uL (1.8-7.7) Lymphocytes # (Auto) 1.3 x10^3/uL (1.0-4.8) Monocytes # (Auto) 0.7 x10^3/uL (0.0-1.1) Eosinophils # (Auto) 0.1 x10^3/uL (0.0-0.7) Basophils # (Auto) 0.1 x10^3/uL (0.0-0.2) Sodium Level 144 mmol/L (136-145) Potassium Level 3.9 mmol/L (3.5-5.1) Chloride Level 105 mmol/L (98-107) Carbon Dioxide Level 28 mmol/L (21-32) Anion Gap 11 (6-14) Blood Urea Nitrogen 19 mg/dL (7-20) Creatinine 0.9 mg/dL (0.6-1.0) Estimated GFR (Cockcroft-Gault) 60.4 Glucose Level 96 mg/dL (70-99) Calcium Level 8.7 mg/dL (8.5-10.1) Magnesium Level 2.2 mg/dL (1.8-2.4) Review of Systems Review of Systems no n.v.d Assessment and Plan Assessmemt and Plan trying to DC soon, with lifevest discsused with cardiology, BP too low to allow Phyllis or [facility]B low dose metoprolol, aldactone started, Amio 200 BId For flutter, Problems: Comment Review of Relevant I have reviewed the following items george (where applicable) has been applied. Labs Laboratory Tests Test 06/27/17 04:45 06/28/17 07:50 White Blood Count 6.3 x10^3/uL (4.0-11.0) 6.7 x10^3/uL (4.0-11.0) Red Blood Count 4.92 x10^6/uL (3.50-5.40) 5.10 x10^6/uL (3.50-5.40) Hemoglobin 13.2 g/dL (12.0-15.5) 13.7 g/dL (12.0-15.5) Hematocrit 39.9 % (36.0-47.0) 42.3 % (36.0-47.0) Mean Corpuscular Volume 81 fL (79-100) 83 fL (79-100) Mean Corpuscular Hemoglobin 27 pg (25-35) 27 pg (25-35) Mean Corpuscular Hemoglobin Concent 33 g/dL (31-37) 32 g/dL (31-37) Red Cell Distribution Width 15.7 % (11.5-14.5) 15.4 % (11.5-14.5) Platelet Count 228 x10^3/uL (140-400) 245 x10^3/uL (140-400) Neutrophils (%) (Auto) 68 % (31-73) 68 % (31-73) Lymphocytes (%) (Auto) 19 % (24-48) 19 % (24-48) Monocytes (%) (Auto) 10 % (0-9) 10 % (0-9) Eosinophils (%) (Auto) 2 % (0-3) 2 % (0-3) Basophils (%) (Auto) 1 % (0-3) 1 % (0-3) Neutrophils # (Auto) 4.3 x10^3uL (1.8-7.7) 4.5 x10^3uL (1.8-7.7) Lymphocytes # (Auto) 1.2 x10^3/uL (1.0-4.8) 1.3 x10^3/uL (1.0-4.8) Monocytes # (Auto) 0.6 x10^3/uL (0.0-1.1) 0.7 x10^3/uL (0.0-1.1) Eosinophils # (Auto) 0.1 x10^3/uL (0.0-0.7) 0.1 x10^3/uL (0.0-0.7) Basophils # (Auto) 0.0 x10^3/uL (0.0-0.2) 0.1 x10^3/uL (0.0-0.2) Sodium Level 143 mmol/L (136-145) 144 mmol/L (136-145) Potassium Level 3.5 mmol/L (3.5-5.1) 3.9 mmol/L (3.5-5.1) Chloride Level 105 mmol/L (98-107) 105 mmol/L (98-107) Carbon Dioxide Level 26 mmol/L (21-32) 28 mmol/L (21-32) Anion Gap 12 (6-14) 11 (6-14) Blood Urea Nitrogen 17 mg/dL (7-20) 19 mg/dL (7-20) Creatinine 0.8 mg/dL (0.6-1.0) 0.9 mg/dL (0.6-1.0) Estimated GFR (Cockcroft-Gault) 69.2 60.4 Glucose Level 102 mg/dL (70-99) 96 mg/dL (70-99) Calcium Level 8.5 mg/dL (8.5-10.1) 8.7 mg/dL (8.5-10.1) Magnesium Level 2.2 mg/dL (1.8-2.4) Laboratory Tests Test 06/28/17 07:50 White Blood Count 6.7 x10^3/uL (4.0-11.0) Red Blood Count 5.10 x10^6/uL (3.50-5.40) Hemoglobin 13.7 g/dL (12.0-15.5) Hematocrit 42.3 % (36.0-47.0) Mean Corpuscular Volume 83 fL (79-100) Mean Corpuscular Hemoglobin 27 pg (25-35) Mean Corpuscular Hemoglobin Concent 32 g/dL (31-37) Red Cell Distribution Width 15.4 % (11.5-14.5) Platelet Count 245 x10^3/uL (140-400) Neutrophils (%) (Auto) 68 % (31-73) Lymphocytes (%) (Auto) 19 % (24-48) Monocytes (%) (Auto) 10 % (0-9) Eosinophils (%) (Auto) 2 % (0-3) Basophils (%) (Auto) 1 % (0-3) Neutrophils # (Auto) 4.5 x10^3uL (1.8-7.7) Lymphocytes # (Auto) 1.3 x10^3/uL (1.0-4.8) Monocytes # (Auto) 0.7 x10^3/uL (0.0-1.1) Eosinophils # (Auto) 0.1 x10^3/uL (0.0-0.7) Basophils # (Auto) 0.1 x10^3/uL (0.0-0.2) Sodium Level 144 mmol/L (136-145) Potassium Level 3.9 mmol/L (3.5-5.1) Chloride Level 105 mmol/L (98-107) Carbon Dioxide Level 28 mmol/L (21-32) Anion Gap 11 (6-14) Blood Urea Nitrogen 19 mg/dL (7-20) Creatinine 0.9 mg/dL (0.6-1.0) Estimated GFR (Cockcroft-Gault) 60.4 Glucose Level 96 mg/dL (70-99) Calcium Level 8.7 mg/dL (8.5-10.1) Magnesium Level 2.2 mg/dL (1.8-2.4) Medications Current Medications Clonidine HCl (Catapres) 0.2 mg 1X ONCE PO ; Start 06/25/17 at 15:00; Stop at 15:01; Status DC Iohexol (Omnipaque 300 Mg/ml) 75 ml 1X ONCE IV Last administered on 06/25/17 15:56; Start 06/25/17 at 15:15; Stop 06/25/17 at 15:16; Status DC Info (Do NOT chart on this entry -- for MONITORING) 1 each PRN DAILY PRN MC SEE COMMENTS; Start 06/25/17 at 15:15; Stop 06/27/17 at 15:14; Status DC Furosemide (Lasix) 40 mg 1X ONCE IVP Last administered on 06/25/17 16:32; Start 06/25/17 at 15:30; Stop 06/25/17 at 15:37; Status DC Aspirin (Children'S Aspirin) 162 mg 1X ONCE PO Last administered on 06/25/17 16:33; Start 06/25/17 at 15:30; Stop 06/25/17 at 15:37; Status DC Ondansetron HCl (Zofran) 4 mg PRN Q8HRS PRN IV NAUSEA/VOMITING; Start 06/25/17 at 16:45; Stop 06/26/17 at 16:44; Status DC Furosemide (Lasix) 40 mg Q12HR IVP ; Start 06/25/17 at 21:00; Stop 06/25/17 at 22:39; Status DC Furosemide (Lasix) 40 mg Q12HR IVP Last administered on 06/28/17 09:18; Start 06/26/17 at 09:00; Stop 06/28/17 at 10:33; Status DC Metoprolol Tartrate (Lopressor) 25 mg 1X ONCE PO Last administered on 11:08; Start 06/26/17 at 10:30; Stop 06/26/17 at 10:31; Status DC Metoprolol Tartrate (Lopressor) 25 mg BID PO Last administered on 06/27/17 21: 18; Start 06/26/17 at 21:00; Stop 06/28/17 at 10:20; Status DC Aspirin (Ecotrin) 81 mg DAILYWBKFT PO Last administered on 06/28/17 09:17; Start 06/27/17 at 08:00 Apixaban (Eliquis) 5 mg BID PO Last administered on 06/28/17 09:17; Start at 11:00 Info (Anti-Coagulation Monitoring By Pharmacy) 1 each PRN DAILY PRN MC SEE COMMENTS; Start 06/27/17 at 10:45 Digoxin (Lanoxin) 125 mcg DAILY PO Last administered on 06/28/17 09:17; Start 06/28/17 at 09:00 Atorvastatin Calcium (Lipitor) 20 mg QHS PO Last administered on 06/27/17 21: 18; Start 06/27/17 at 21:00 Potassium Chloride (Klor-Con) 40 meq 1X ONCE PO Last administered on 13:26; Start 06/27/17 at 12:00; Stop 06/27/17 at 12:07; Status DC Potassium Chloride (Klor-Con) 20 meq DAILYWBKFT PO Last administered on 09:17; Start 06/28/17 at 08:00 Regadenoson (Lexiscan) 0.4 mg 1X ONCE IV Last administered on 06/27/17 12:45 ; Start 06/27/17 at 12:45; Stop 06/27/17 at 12:46; Status DC Regadenoson (Lexiscan) 0.4 mg STK-MED ONCE IV ; Start 06/27/17 at 12:42; Stop at 09:20; Status DC Metoprolol Succinate (Toprol Xl) 25 mg DAILY PO ; Start 06/29/17 at 09:00 Amiodarone HCl (Cordarone) 200 mg DAILY PO ; Start 06/28/17 at 12:00 Furosemide (Lasix) 40 mg BID94 PO ; Start 06/28/17 at 16:00 Spironolactone (Aldactone) 25 mg DAILY PO ; Start 06/28/17 at 12:00 Metoprolol Succinate (Toprol Xl) 25 mg 1X ONCE PO ; Start 06/28/17 at 11:30; Stop 06/28/17 at 11:31 Active Scripts Active Reported Atorvastatin Calcium 20 Mg Tablet 20 Mg PO HS Atorvastatin Calcium 20 Mg Tablet 20 Mg PO HS Cetirizine Hcl 10 Mg Tablet 10 Mg PO PRN DAILY PRN Multi-Day Vitamins (Multivitamin) 1 Each Tablet 1 Tab PO DAILY Vitals/I & O Vital Sign - Last 24 Hours 06/27/17 06/27/17 06/27/17 06/27/17 11:06 13:18 15:18 19:25 Temp 97.5 97.3 97.8 97.5 97.3 97.8 Pulse 94 111 95 100 Resp 18 16 18 B/P (MAP) 107/73 (84) 123/79 118/67 (84) 101/64 (76) Pulse Ox 96 97 93 O2 Delivery Room Air Room Air Room Air 06/27/17 06/27/17 06/27/17 06/28/17 20:00 21:18 23:25 03:20 Temp 98.2 97.9 98.2 97.9 Pulse 100 132 87 Resp 20 18 B/P (MAP) 101/64 100/74 (83) 96/69 (78) Pulse Ox 92 94 O2 Delivery Room Air Room Air Room Air 06/28/17 06/28/17 07:15 09:17 Temp 97.3 97.3 Pulse 87 87 Resp 20 B/P (MAP) 97/66 (76) 97/66 Pulse Ox 96 O2 Delivery Room Air Intake and Output 06/27/17 06/27/17 06/28/17 15:00 23:00 07:00 Intake Total 360 ml 360 ml Output Total 250 ml 450 ml 500 ml Balance 110 ml -90 ml -500 ml HANK ELLINGTON MD Jun 28, 2017 11:03
[2017-06-28] MEDS ORDERED: METOPROLOL SUCC 24HR ER 25 MG TAB.ER.24H. PO ONE (11:30)
[2017-06-28] MEDS: SPIRONOLACTONE 25 MG TABLET PO SCH (12:00)
[2017-06-28] MEDS ORDERED: AMIODARONE HCL 200 MG TABLET. PO SCH (12:00)
[2017-06-28] MEDS ORDERED: AMIODARONE 900 MG in IV DEXTROSE 5% 500 ML IV PRN (12:30)
[2017-06-28] MEDS ORDERED: AMIODARONE 150 MG in IV DEXTROSE 5% 100 ML IV ONE (13:00)
--- NOTE | 2017-06-28 13:12 | PDOC ---
PULMONARY PROGRESS NOTES Subjective no soa Vitals Vital Signs Date Time Temp Pulse Resp B/P (MAP) Pulse Ox O2 Delivery O2 Flow Rate FiO2 06/28/17 11:01 97.7 60 18 92/67 (75) 96 Room Air 97.7 General: Alert, No acute distress Lungs: Crackles (bases) Cardiovascular: S1 Abdomen: Soft Neuro Exam: Alert Extremities: No Edema Skin: Warm Labs Laboratory Tests Test 06/27/17 04:45 06/28/17 07:50 White Blood Count 6.3 x10^3/uL (4.0-11.0) 6.7 x10^3/uL (4.0-11.0) Red Blood Count 4.92 x10^6/uL (3.50-5.40) 5.10 x10^6/uL (3.50-5.40) Hemoglobin 13.2 g/dL (12.0-15.5) 13.7 g/dL (12.0-15.5) Hematocrit 39.9 % (36.0-47.0) 42.3 % (36.0-47.0) Mean Corpuscular Volume 81 fL (79-100) 83 fL (79-100) Mean Corpuscular Hemoglobin 27 pg (25-35) 27 pg (25-35) Mean Corpuscular Hemoglobin Concent 33 g/dL (31-37) 32 g/dL (31-37) Red Cell Distribution Width 15.7 % (11.5-14.5) 15.4 % (11.5-14.5) Platelet Count 228 x10^3/uL (140-400) 245 x10^3/uL (140-400) Neutrophils (%) (Auto) 68 % (31-73) 68 % (31-73) Lymphocytes (%) (Auto) 19 % (24-48) 19 % (24-48) Monocytes (%) (Auto) 10 % (0-9) 10 % (0-9) Eosinophils (%) (Auto) 2 % (0-3) 2 % (0-3) Basophils (%) (Auto) 1 % (0-3) 1 % (0-3) Neutrophils # (Auto) 4.3 x10^3uL (1.8-7.7) 4.5 x10^3uL (1.8-7.7) Lymphocytes # (Auto) 1.2 x10^3/uL (1.0-4.8) 1.3 x10^3/uL (1.0-4.8) Monocytes # (Auto) 0.6 x10^3/uL (0.0-1.1) 0.7 x10^3/uL (0.0-1.1) Eosinophils # (Auto) 0.1 x10^3/uL (0.0-0.7) 0.1 x10^3/uL (0.0-0.7) Basophils # (Auto) 0.0 x10^3/uL (0.0-0.2) 0.1 x10^3/uL (0.0-0.2) Sodium Level 143 mmol/L (136-145) 144 mmol/L (136-145) Potassium Level 3.5 mmol/L (3.5-5.1) 3.9 mmol/L (3.5-5.1) Chloride Level 105 mmol/L (98-107) 105 mmol/L (98-107) Carbon Dioxide Level 26 mmol/L (21-32) 28 mmol/L (21-32) Anion Gap 12 (6-14) 11 (6-14) Blood Urea Nitrogen 17 mg/dL (7-20) 19 mg/dL (7-20) Creatinine 0.8 mg/dL (0.6-1.0) 0.9 mg/dL (0.6-1.0) Estimated GFR (Cockcroft-Gault) 69.2 60.4 Glucose Level 102 mg/dL (70-99) 96 mg/dL (70-99) Calcium Level 8.5 mg/dL (8.5-10.1) 8.7 mg/dL (8.5-10.1) Magnesium Level 2.2 mg/dL (1.8-2.4) Laboratory Tests Test 06/28/17 07:50 White Blood Count 6.7 x10^3/uL (4.0-11.0) Red Blood Count 5.10 x10^6/uL (3.50-5.40) Hemoglobin 13.7 g/dL (12.0-15.5) Hematocrit 42.3 % (36.0-47.0) Mean Corpuscular Volume 83 fL (79-100) Mean Corpuscular Hemoglobin 27 pg (25-35) Mean Corpuscular Hemoglobin Concent 32 g/dL (31-37) Red Cell Distribution Width 15.4 % (11.5-14.5) Platelet Count 245 x10^3/uL (140-400) Neutrophils (%) (Auto) 68 % (31-73) Lymphocytes (%) (Auto) 19 % (24-48) Monocytes (%) (Auto) 10 % (0-9) Eosinophils (%) (Auto) 2 % (0-3) Basophils (%) (Auto) 1 % (0-3) Neutrophils # (Auto) 4.5 x10^3uL (1.8-7.7) Lymphocytes # (Auto) 1.3 x10^3/uL (1.0-4.8) Monocytes # (Auto) 0.7 x10^3/uL (0.0-1.1) Eosinophils # (Auto) 0.1 x10^3/uL (0.0-0.7) Basophils # (Auto) 0.1 x10^3/uL (0.0-0.2) Sodium Level 144 mmol/L (136-145) Potassium Level 3.9 mmol/L (3.5-5.1) Chloride Level 105 mmol/L (98-107) Carbon Dioxide Level 28 mmol/L (21-32) Anion Gap 11 (6-14) Blood Urea Nitrogen 19 mg/dL (7-20) Creatinine 0.9 mg/dL (0.6-1.0) Estimated GFR (Cockcroft-Gault) 60.4 Glucose Level 96 mg/dL (70-99) Calcium Level 8.7 mg/dL (8.5-10.1) Magnesium Level 2.2 mg/dL (1.8-2.4) Medications Active Scripts Medications Dose Route/Sig Max Daily Dose Days Date Category Atorvastatin Calcium 20 Mg Tablet 20 Mg PO HS 06/27/17 Reported Atorvastatin Calcium 20 Mg Tablet 20 Mg PO HS 06/26/17 Reported Cetirizine Hcl 10 Mg Tablet 10 Mg PO PRN DAILY PRN 06/26/17 Reported Multi-Day Vitamins (Multivitamin) 1 Each Tablet 1 Tab PO DAILY 06/26/17 Reported Impression . 1. Dyspnea secondary to development of acute congestive heart failure. clinically improving. 2. Abnormal CT chest with bilateral infiltrates, bilateral pleural effusions and interlobular septal thickening. These are findings suggesting congestive heart failure, which is clinically improving. She also has a left upper lobe 12 mm small spiculated mass and the possibility of malignancy cannot be ruled out, but at this point, I will recommend treating congestive heart failure and following a CT chest in 4-6 weeks./ PET as OP 3. No significant history of tobacco use. 4. Clinically, less likely pneumonia. Plan . 1. Continue diuresis. 2. echocardiogram. 3. PET scan as OP 4. P.r.n. oxygen. 5. Follow Cardiology recommendations. 6. remote h/o breast cancer, check tumor marker 7. f/u with me in sept PEGGY MONTEIRO MD Jun 28, 2017 13:12
[2017-06-28] MEDS: FUROSEMIDE 40 MG TABLET. PO SCH (16:00)
[2017-06-28] MEDS: ATORVASTATIN CALCIUM 20 MG TABLET PO SCH (21:35)
[2017-06-29] VITALS (18 sets, daily range): BP systolic 86–129; BP diastolic 62–84
[2017-06-29 04:41] LABS: BASO # 0.1 x10^3/uL (0.0-0.2); BASO % 1 % (0-3); EOS % 3 % (0-3); HEMATOCRIT 40.9 % (36.0-47.0); HEMOGLOBIN 13.3 g/dL (12.0-15.5); LYMPH # 1.2 x10^3/uL (1.0-4.8); LYMPH % 20 % (24-48); MEAN CORPUSCULAR HEMOGLOBIN 27 pg (25-35); MEAN CORPUSCULAR HGB CONC 32 g/dL (31-37); MEAN CORPUSCULAR VOLUME 83 fL (79-100); MONO % 11 % (0-9); NEUT % 66 % (31-73); PLATELET COUNT 224 x10^3/uL (140-400); RED BLOOD COUNT 4.95 x10^6/uL (3.50-5.40); RED CELL DISTRIBUTION WIDTH 15.3 % (11.5-14.5); WHITE BLOOD COUNT 6.3 x10^3/uL (4.0-11.0)
[2017-06-29 04:51] LABS: CALCIUM 8.3 mg/dL (8.5-10.1); CREATININE 0.9 mg/dL (0.6-1.0); GFR 60.4; POTASSIUM 3.7 mmol/L (3.5-5.1)
[2017-06-29] MEDS: POTASSIUM CHLORIDE 20 MEQ TABLET.ER. PO SCH (08:31)
[2017-06-29] MEDS: METOPROLOL SUCC 24HR ER 25 MG TAB.ER.24H. PO SCH (08:32)
[2017-06-29] MEDS: FUROSEMIDE 40 MG TABLET. PO SCH ×2 (08:32→17:01)
[2017-06-29] MEDS: SPIRONOLACTONE 25 MG TABLET PO SCH (08:33)
[2017-06-29] MEDS: APIXABAN 5 MG TABLET. PO SCH ×2 (08:34→20:19)
[2017-06-29] MEDS: AMIODARONE HCL 200 MG TABLET. PO SCH (08:34)
[2017-06-29] MEDS: ASPIRIN ENTERIC COATED 81 MG TABLET.DR. PO SCH (08:34)
[2017-06-29] MEDS: DIGOXIN 125 MCG TABLET. PO SCH (08:35)
[2017-06-29] MEDS ORDERED: AMIO200T2 PO (12:13)
[2017-06-29] MEDS ORDERED: FURO40TA4 PO (12:13)
[2017-06-29] MEDS ORDERED: APIX5TAB PO (12:13)
[2017-06-29] MEDS ORDERED: METO25TA9 PO (12:13)
[2017-06-29] MEDS ORDERED: SPIR25TA PO (12:13)
[2017-06-29] MEDS ORDERED: DIGO125T PO (12:13)
[2017-06-29] MEDS ORDERED: ASPI-612 PO (12:13)
--- NOTE | 2017-06-29 12:34 | PDOC ---
PROGRESS NOTES Chief Complaint Chief Complaint CC SOB, CHF exacerbation afib RVR, acute diastolic CHF chronic systolic CHF, poor ER % Hypercholesterolemia Breast CA History of Present Illness History of Present Illness 81 y/o F with CC of SOB with CHF exacerbation alert, talkative, no complaint afib now controlle,d mostly in sinus cont current may DC if stop Amio gtt Vitals Vitals Vital Signs Date Time Temp Pulse Resp B/P (MAP) Pulse Ox O2 Delivery O2 Flow Rate FiO2 06/29/17 11:08 97.6 106 18 86/62 (70) 95 Room Air 97.6 Physical Exam General: Alert, Oriented X3, Cooperative, No acute distress Heart: Regular rate (SR), Normal S1, Normal S2, Other (2/6 systolic murmur to LLS border) Lungs: Crackles (bases) Abdomen: Soft, No tenderness Extremities: No cyanosis, Other (1+ bilateral LE pitting edema) Skin: No breakdown, No significant lesion Labs LABS Laboratory Tests Test 06/29/17 04:00 White Blood Count 6.3 x10^3/uL (4.0-11.0) Red Blood Count 4.95 x10^6/uL (3.50-5.40) Hemoglobin 13.3 g/dL (12.0-15.5) Hematocrit 40.9 % (36.0-47.0) Mean Corpuscular Volume 83 fL (79-100) Mean Corpuscular Hemoglobin 27 pg (25-35) Mean Corpuscular Hemoglobin Concent 32 g/dL (31-37) Red Cell Distribution Width 15.3 % (11.5-14.5) Platelet Count 224 x10^3/uL (140-400) Neutrophils (%) (Auto) 66 % (31-73) Lymphocytes (%) (Auto) 20 % (24-48) Monocytes (%) (Auto) 11 % (0-9) Eosinophils (%) (Auto) 3 % (0-3) Basophils (%) (Auto) 1 % (0-3) Neutrophils # (Auto) 4.1 x10^3uL (1.8-7.7) Lymphocytes # (Auto) 1.2 x10^3/uL (1.0-4.8) Monocytes # (Auto) 0.7 x10^3/uL (0.0-1.1) Eosinophils # (Auto) 0.2 x10^3/uL (0.0-0.7) Basophils # (Auto) 0.1 x10^3/uL (0.0-0.2) Sodium Level 139 mmol/L (136-145) Potassium Level 3.7 mmol/L (3.5-5.1) Chloride Level 103 mmol/L (98-107) Carbon Dioxide Level 27 mmol/L (21-32) Anion Gap 9 (6-14) Blood Urea Nitrogen 23 mg/dL (7-20) Creatinine 0.9 mg/dL (0.6-1.0) Estimated GFR (Cockcroft-Gault) 60.4 Glucose Level 107 mg/dL (70-99) Calcium Level 8.3 mg/dL (8.5-10.1) Review of Systems Review of Systems no n.v.d Comment Review of Relevant I have reviewed the following items george (where applicable) has been applied. Labs Laboratory Tests Test 06/28/17 07:50 06/29/17 04:00 White Blood Count 6.7 x10^3/uL (4.0-11.0) 6.3 x10^3/uL (4.0-11.0) Red Blood Count 5.10 x10^6/uL (3.50-5.40) 4.95 x10^6/uL (3.50-5.40) Hemoglobin 13.7 g/dL (12.0-15.5) 13.3 g/dL (12.0-15.5) Hematocrit 42.3 % (36.0-47.0) 40.9 % (36.0-47.0) Mean Corpuscular Volume 83 fL (79-100) 83 fL (79-100) Mean Corpuscular Hemoglobin 27 pg (25-35) 27 pg (25-35) Mean Corpuscular Hemoglobin Concent 32 g/dL (31-37) 32 g/dL (31-37) Red Cell Distribution Width 15.4 % (11.5-14.5) 15.3 % (11.5-14.5) Platelet Count 245 x10^3/uL (140-400) 224 x10^3/uL (140-400) Neutrophils (%) (Auto) 68 % (31-73) 66 % (31-73) Lymphocytes (%) (Auto) 19 % (24-48) 20 % (24-48) Monocytes (%) (Auto) 10 % (0-9) 11 % (0-9) Eosinophils (%) (Auto) 2 % (0-3) 3 % (0-3) Basophils (%) (Auto) 1 % (0-3) 1 % (0-3) Neutrophils # (Auto) 4.5 x10^3uL (1.8-7.7) 4.1 x10^3uL (1.8-7.7) Lymphocytes # (Auto) 1.3 x10^3/uL (1.0-4.8) 1.2 x10^3/uL (1.0-4.8) Monocytes # (Auto) 0.7 x10^3/uL (0.0-1.1) 0.7 x10^3/uL (0.0-1.1) Eosinophils # (Auto) 0.1 x10^3/uL (0.0-0.7) 0.2 x10^3/uL (0.0-0.7) Basophils # (Auto) 0.1 x10^3/uL (0.0-0.2) 0.1 x10^3/uL (0.0-0.2) Sodium Level 144 mmol/L (136-145) 139 mmol/L (136-145) Potassium Level 3.9 mmol/L (3.5-5.1) 3.7 mmol/L (3.5-5.1) Chloride Level 105 mmol/L (98-107) 103 mmol/L (98-107) Carbon Dioxide Level 28 mmol/L (21-32) 27 mmol/L (21-32) Anion Gap 11 (6-14) 9 (6-14) Blood Urea Nitrogen 19 mg/dL (7-20) 23 mg/dL (7-20) Creatinine 0.9 mg/dL (0.6-1.0) 0.9 mg/dL (0.6-1.0) Estimated GFR (Cockcroft-Gault) 60.4 60.4 Glucose Level 96 mg/dL (70-99) 107 mg/dL (70-99) Calcium Level 8.7 mg/dL (8.5-10.1) 8.3 mg/dL (8.5-10.1) Magnesium Level 2.2 mg/dL (1.8-2.4) Laboratory Tests Test 06/29/17 04:00 White Blood Count 6.3 x10^3/uL (4.0-11.0) Red Blood Count 4.95 x10^6/uL (3.50-5.40) Hemoglobin 13.3 g/dL (12.0-15.5) Hematocrit 40.9 % (36.0-47.0) Mean Corpuscular Volume 83 fL (79-100) Mean Corpuscular Hemoglobin 27 pg (25-35) Mean Corpuscular Hemoglobin Concent 32 g/dL (31-37) Red Cell Distribution Width 15.3 % (11.5-14.5) Platelet Count 224 x10^3/uL (140-400) Neutrophils (%) (Auto) 66 % (31-73) Lymphocytes (%) (Auto) 20 % (24-48) Monocytes (%) (Auto) 11 % (0-9) Eosinophils (%) (Auto) 3 % (0-3) Basophils (%) (Auto) 1 % (0-3) Neutrophils # (Auto) 4.1 x10^3uL (1.8-7.7) Lymphocytes # (Auto) 1.2 x10^3/uL (1.0-4.8) Monocytes # (Auto) 0.7 x10^3/uL (0.0-1.1) Eosinophils # (Auto) 0.2 x10^3/uL (0.0-0.7) Basophils # (Auto) 0.1 x10^3/uL (0.0-0.2) Sodium Level 139 mmol/L (136-145) Potassium Level 3.7 mmol/L (3.5-5.1) Chloride Level 103 mmol/L (98-107) Carbon Dioxide Level 27 mmol/L (21-32) Anion Gap 9 (6-14) Blood Urea Nitrogen 23 mg/dL (7-20) Creatinine 0.9 mg/dL (0.6-1.0) Estimated GFR (Cockcroft-Gault) 60.4 Glucose Level 107 mg/dL (70-99) Calcium Level 8.3 mg/dL (8.5-10.1) Medications Current Medications Clonidine HCl (Catapres) 0.2 mg 1X ONCE PO ; Start 06/25/17 at 15:00; Stop at 15:01; Status DC Iohexol (Omnipaque 300 Mg/ml) 75 ml 1X ONCE IV Last administered on 06/25/17 15:56; Start 06/25/17 at 15:15; Stop 06/25/17 at 15:16; Status DC Info (Do NOT chart on this entry -- for MONITORING) 1 each PRN DAILY PRN MC SEE COMMENTS; Start 06/25/17 at 15:15; Stop 06/27/17 at 15:14; Status DC Furosemide (Lasix) 40 mg 1X ONCE IVP Last administered on 06/25/17 16:32; Start 06/25/17 at 15:30; Stop 06/25/17 at 15:37; Status DC Aspirin (Children'S Aspirin) 162 mg 1X ONCE PO Last administered on 06/25/17 16:33; Start 06/25/17 at 15:30; Stop 06/25/17 at 15:37; Status DC Ondansetron HCl (Zofran) 4 mg PRN Q8HRS PRN IV NAUSEA/VOMITING; Start 06/25/17 at 16:45; Stop 06/26/17 at 16:44; Status DC Furosemide (Lasix) 40 mg Q12HR IVP ; Start 06/25/17 at 21:00; Stop 06/25/17 at 22:39; Status DC Furosemide (Lasix) 40 mg Q12HR IVP Last administered on 06/28/17 09:18; Start 06/26/17 at 09:00; Stop 06/28/17 at 10:33; Status DC Metoprolol Tartrate (Lopressor) 25 mg 1X ONCE PO Last administered on 11:08; Start 06/26/17 at 10:30; Stop 06/26/17 at 10:31; Status DC Metoprolol Tartrate (Lopressor) 25 mg BID PO Last administered on 06/27/17 21: 18; Start 06/26/17 at 21:00; Stop 06/28/17 at 10:20; Status DC Aspirin (Ecotrin) 81 mg [id number] PO Last administered on 06/29/17 08:34; Start 06/27/17 at 08:00 Apixaban (Eliquis) 5 mg BID PO Last administered on 06/29/17 08:34; Start at 11:00 Info (Anti-Coagulation Monitoring By Pharmacy) 1 each PRN DAILY PRN MC SEE COMMENTS; Start 06/27/17 at 10:45 Digoxin (Lanoxin) 125 mcg DAILY PO Last administered on 06/29/17 08:35; Start 06/28/17 at 09:00 Atorvastatin Calcium (Lipitor) 20 mg QHS PO Last administered on 06/28/17 21: 35; Start 06/27/17 at 21:00 Potassium Chloride (Klor-Con) 40 meq 1X ONCE PO Last administered on 13:26; Start 06/27/17 at 12:00; Stop 06/27/17 at 12:07; Status DC Potassium Chloride (Klor-Con) 20 meq [id number] PO Last administered on 08:31; Start 06/28/17 at 08:00 Regadenoson (Lexiscan) 0.4 mg 1X ONCE IV Last administered on 06/27/17 12:45 ; Start 06/27/17 at 12:45; Stop 06/27/17 at 12:46; Status DC Regadenoson (Lexiscan) 0.4 mg STK-MED ONCE IV ; Start 06/27/17 at 12:42; Stop at 09:20; Status DC Metoprolol Succinate (Toprol Xl) 25 mg DAILY PO Last administered on 06/29/17 08:32; Start 06/29/17 at 09:00 Amiodarone HCl (Cordarone) 200 mg DAILY PO ; Start 06/28/17 at 12:00; Status Cancel Furosemide (Lasix) 40 mg [id number] PO Last administered on 06/29/17 08:32; Start 06/28/17 at 16:00 Spironolactone (Aldactone) 25 mg DAILY PO Last administered on 06/29/17 08:33 ; Start 06/28/17 at 12:00 Metoprolol Succinate (Toprol Xl) 25 mg 1X ONCE PO ; Start 06/28/17 at 11:30; Stop 06/28/17 at 11:31; Status DC Amiodarone HCl 150 mg/Dextrose 103 ml @ 618 mls/hr 1X ONCE IV Last administered on 06/28/17 13:10; Start 06/28/17 at 13:00; Stop 06/28/17 at 13:09 ; Status DC Amiodarone HCl 900 mg/Dextrose 518 ml @ 0 mls/hr CONT PRN IV SEE I/O RECORD Last administered on 06/28/17 13:30; Start 06/28/17 at 12:30; Stop 06/28/17 at 13:30; Status DC Amiodarone HCl (Cordarone) 200 mg DAILY PO Last administered on 06/29/17 08:34 ; Start 06/29/17 at 09:00 Nystatin (Nystop) 1 keila TID TP ; Start 06/29/17 at 14:00 Active Scripts Active Reported Atorvastatin Calcium 20 Mg Tablet 20 Mg PO HS Atorvastatin Calcium 20 Mg Tablet 20 Mg PO HS Cetirizine Hcl 10 Mg Tablet 10 Mg PO PRN DAILY PRN Multi-Day Vitamins (Multivitamin) 1 Each Tablet 1 Tab PO DAILY Vitals/I & O Vital Sign - Last 24 Hours 06/28/17 06/28/17 06/28/17 06/28/17 13:00 13:10 14:00 15:00 Pulse 132 133 116 114 B/P (MAP) 90/64 (73) 90/64 87/60 (69) 77/68 (71) 06/28/17 06/28/17 06/28/17 06/28/17 15:01 16:00 17:00 17:00 Temp 98.1 98.1 Pulse 63 112 118 118 Resp 20 B/P (MAP) 83/61 (68) 98/67 (77) 99/73 (82) 99/73 (82) Pulse Ox 97 O2 Delivery Room Air 06/28/17 06/28/17 06/28/17 06/28/17 18:00 18:00 19:00 19:41 Temp 97.6 97.6 Pulse 112 112 106 107 Resp 18 B/P (MAP) 87/65 (72) 87/65 (72) 93/67 (76) 84/60 (68) Pulse Ox 97 O2 Delivery Room Air 06/28/17 06/28/17 06/28/17 06/28/17 20:00 20:00 22:00 22:10 Temp 97.9 97.9 Pulse 104 106 102 Resp 18 B/P (MAP) 82/60 (67) 103/78 (86) 103/78 (86) Pulse Ox 96 O2 Delivery Room Air Room Air 06/29/17 06/29/17 06/29/17 06/29/17 00:00 01:00 02:00 03:00 Pulse 100 98 106 82 Resp 20 20 18 B/P (MAP) 129/83 (98) 106/67 (80) 112/81 (91) 95/74 (81) 06/29/17 06/29/17 06/29/17 06/29/17 03:32 04:00 05:00 07:15 Temp 98.0 97.4 98.0 97.4 Pulse 105 96 102 101 Resp 20 20 18 B/P (MAP) 95/74 (81) 108/74 (85) 113/84 (94) 100/71 (81) Pulse Ox 95 96 O2 Delivery Room Air Room Air 06/29/17 06/29/17 06/29/17 06/29/17 08:00 08:32 08:34 08:35 Pulse 101 109 110 B/P (MAP) 100/71 104/78 104/78 O2 Delivery Room Air 06/29/17 11:08 Temp 97.6 97.6 Pulse 106 Resp 18 B/P (MAP) 86/62 (70) Pulse Ox 95 O2 Delivery Room Air Intake and Output 06/28/17 06/28/17 06/29/17 15:00 23:00 07:00 Intake Total 640 ml 625 ml Output Total 500 ml 300 ml 900 ml Balance 140 ml 325 ml -900 ml HANK ELLINGTON MD Jun 29, 2017 12:34
--- NOTE | 2017-06-29 13:10 | PDOC ---
PULMONARY PROGRESS NOTES Subjective no soa Vitals Vital Signs Date Time Temp Pulse Resp B/P (MAP) Pulse Ox O2 Delivery O2 Flow Rate FiO2 06/29/17 11:08 97.6 106 18 86/62 (70) 95 Room Air 97.6 General: Alert, No acute distress Lungs: Crackles (bases) Cardiovascular: S1 Abdomen: Soft Neuro Exam: Alert Extremities: No Edema Skin: Warm Labs Laboratory Tests Test 06/28/17 07:50 06/29/17 04:00 White Blood Count 6.7 x10^3/uL (4.0-11.0) 6.3 x10^3/uL (4.0-11.0) Red Blood Count 5.10 x10^6/uL (3.50-5.40) 4.95 x10^6/uL (3.50-5.40) Hemoglobin 13.7 g/dL (12.0-15.5) 13.3 g/dL (12.0-15.5) Hematocrit 42.3 % (36.0-47.0) 40.9 % (36.0-47.0) Mean Corpuscular Volume 83 fL (79-100) 83 fL (79-100) Mean Corpuscular Hemoglobin 27 pg (25-35) 27 pg (25-35) Mean Corpuscular Hemoglobin Concent 32 g/dL (31-37) 32 g/dL (31-37) Red Cell Distribution Width 15.4 % (11.5-14.5) 15.3 % (11.5-14.5) Platelet Count 245 x10^3/uL (140-400) 224 x10^3/uL (140-400) Neutrophils (%) (Auto) 68 % (31-73) 66 % (31-73) Lymphocytes (%) (Auto) 19 % (24-48) 20 % (24-48) Monocytes (%) (Auto) 10 % (0-9) 11 % (0-9) Eosinophils (%) (Auto) 2 % (0-3) 3 % (0-3) Basophils (%) (Auto) 1 % (0-3) 1 % (0-3) Neutrophils # (Auto) 4.5 x10^3uL (1.8-7.7) 4.1 x10^3uL (1.8-7.7) Lymphocytes # (Auto) 1.3 x10^3/uL (1.0-4.8) 1.2 x10^3/uL (1.0-4.8) Monocytes # (Auto) 0.7 x10^3/uL (0.0-1.1) 0.7 x10^3/uL (0.0-1.1) Eosinophils # (Auto) 0.1 x10^3/uL (0.0-0.7) 0.2 x10^3/uL (0.0-0.7) Basophils # (Auto) 0.1 x10^3/uL (0.0-0.2) 0.1 x10^3/uL (0.0-0.2) Sodium Level 144 mmol/L (136-145) 139 mmol/L (136-145) Potassium Level 3.9 mmol/L (3.5-5.1) 3.7 mmol/L (3.5-5.1) Chloride Level 105 mmol/L (98-107) 103 mmol/L (98-107) Carbon Dioxide Level 28 mmol/L (21-32) 27 mmol/L (21-32) Anion Gap 11 (6-14) 9 (6-14) Blood Urea Nitrogen 19 mg/dL (7-20) 23 mg/dL (7-20) Creatinine 0.9 mg/dL (0.6-1.0) 0.9 mg/dL (0.6-1.0) Estimated GFR (Cockcroft-Gault) 60.4 60.4 Glucose Level 96 mg/dL (70-99) 107 mg/dL (70-99) Calcium Level 8.7 mg/dL (8.5-10.1) 8.3 mg/dL (8.5-10.1) Magnesium Level 2.2 mg/dL (1.8-2.4) Laboratory Tests Test 06/29/17 04:00 White Blood Count 6.3 x10^3/uL (4.0-11.0) Red Blood Count 4.95 x10^6/uL (3.50-5.40) Hemoglobin 13.3 g/dL (12.0-15.5) Hematocrit 40.9 % (36.0-47.0) Mean Corpuscular Volume 83 fL (79-100) Mean Corpuscular Hemoglobin 27 pg (25-35) Mean Corpuscular Hemoglobin Concent 32 g/dL (31-37) Red Cell Distribution Width 15.3 % (11.5-14.5) Platelet Count 224 x10^3/uL (140-400) Neutrophils (%) (Auto) 66 % (31-73) Lymphocytes (%) (Auto) 20 % (24-48) Monocytes (%) (Auto) 11 % (0-9) Eosinophils (%) (Auto) 3 % (0-3) Basophils (%) (Auto) 1 % (0-3) Neutrophils # (Auto) 4.1 x10^3uL (1.8-7.7) Lymphocytes # (Auto) 1.2 x10^3/uL (1.0-4.8) Monocytes # (Auto) 0.7 x10^3/uL (0.0-1.1) Eosinophils # (Auto) 0.2 x10^3/uL (0.0-0.7) Basophils # (Auto) 0.1 x10^3/uL (0.0-0.2) Sodium Level 139 mmol/L (136-145) Potassium Level 3.7 mmol/L (3.5-5.1) Chloride Level 103 mmol/L (98-107) Carbon Dioxide Level 27 mmol/L (21-32) Anion Gap 9 (6-14) Blood Urea Nitrogen 23 mg/dL (7-20) Creatinine 0.9 mg/dL (0.6-1.0) Estimated GFR (Cockcroft-Gault) 60.4 Glucose Level 107 mg/dL (70-99) Calcium Level 8.3 mg/dL (8.5-10.1) Medications Active Scripts Medications Dose Route/Sig Max Daily Dose Days Date Category Atorvastatin Calcium 20 Mg Tablet 20 Mg PO HS 06/27/17 Reported Atorvastatin Calcium 20 Mg Tablet 20 Mg PO HS 06/26/17 Reported Cetirizine Hcl 10 Mg Tablet 10 Mg PO PRN DAILY PRN 06/26/17 Reported Multi-Day Vitamins (Multivitamin) 1 Each Tablet 1 Tab PO DAILY 06/26/17 Reported Impression . 1. Dyspnea secondary to development of acute congestive heart failure. clinically improved 2. Abnormal CT chest with bilateral infiltrates, bilateral pleural effusions and interlobular septal thickening. These are findings suggesting congestive heart failure, which is clinically improving. She also has a left upper lobe 12 mm small spiculated mass and the possibility of malignancy cannot be ruled out, but at this point, I will recommend treating congestive heart failure and following a CT chest in 4-6 weeks./ PET as OP 3. No significant history of tobacco use. 4. Clinically, less likely pneumonia. Plan . 1. Continue diuresis. 2. echocardiogram. 3. PET scan as OP 4. P.r.n. oxygen. 5. Follow Cardiology recommendations. 6. remote h/o breast cancer, Normal tumor marker 7. f/u with me in jul PEGGY MONTEIRO MD Jun 29, 2017 13:10
--- NOTE | 2017-06-29 14:09 | PDOC ---
VIRIDIANA HIDALGO ATM MECHANIC 06/29/17 1409: CARDIO Progress Notes Date and Time Date of Service 06/29/2017 Time of Evaluation 1350 Subjective Subjective: No Chest Pain, No shortness of breath, No Palpitations, No Dizziness, Other (tolerated hallway ambulation with PT) Vitals Vitals Vital Signs Date Time Temp Pulse Resp B/P (MAP) Pulse Ox O2 Delivery O2 Flow Rate FiO2 06/29/17 11:08 97.6 106 18 86/62 (70) 95 Room Air 97.6 Weight Weight [ ] Input and Output Intake and Output Intake and Output 06/29/17 07:00 Intake Total 1265 ml Output Total 1700 ml Balance -435 ml Intake Oral 1000 ml IV Total 265 ml Output Urine Total 1700 ml # Voids 2 Laboratory Labs Laboratory Tests Test 06/29/17 04:00 White Blood Count 6.3 x10^3/uL (4.0-11.0) Red Blood Count 4.95 x10^6/uL (3.50-5.40) Hemoglobin 13.3 g/dL (12.0-15.5) Hematocrit 40.9 % (36.0-47.0) Mean Corpuscular Volume 83 fL (79-100) Mean Corpuscular Hemoglobin 27 pg (25-35) Mean Corpuscular Hemoglobin Concent 32 g/dL (31-37) Red Cell Distribution Width 15.3 % (11.5-14.5) Platelet Count 224 x10^3/uL (140-400) Neutrophils (%) (Auto) 66 % (31-73) Lymphocytes (%) (Auto) 20 % (24-48) Monocytes (%) (Auto) 11 % (0-9) Eosinophils (%) (Auto) 3 % (0-3) Basophils (%) (Auto) 1 % (0-3) Neutrophils # (Auto) 4.1 x10^3uL (1.8-7.7) Lymphocytes # (Auto) 1.2 x10^3/uL (1.0-4.8) Monocytes # (Auto) 0.7 x10^3/uL (0.0-1.1) Eosinophils # (Auto) 0.2 x10^3/uL (0.0-0.7) Basophils # (Auto) 0.1 x10^3/uL (0.0-0.2) Sodium Level 139 mmol/L (136-145) Potassium Level 3.7 mmol/L (3.5-5.1) Chloride Level 103 mmol/L (98-107) Carbon Dioxide Level 27 mmol/L (21-32) Anion Gap 9 (6-14) Blood Urea Nitrogen 23 mg/dL (7-20) Creatinine 0.9 mg/dL (0.6-1.0) Estimated GFR (Cockcroft-Gault) 60.4 Glucose Level 107 mg/dL (70-99) Calcium Level 8.3 mg/dL (8.5-10.1) Physical Exam HEENT: Neck Supple W Full Motion Chest: Symmetric LUNGS: Clear to Auscultation Heart: S1S2, RRR (SR), murmurs (2/6 systolic murmur to LLS border) Abdomen: Soft N/T Extremities: No Calf Tenderness, Other (1+ bilateral LE pitting edema) Neurology: alert, oriented, follow commands Assessment Assessment 1. Acute diastolic/systolic dysfunction: compensated. NYHA 1-2. Compensated 2. RUL mass: pulmonary following. 3. PAflutter: SR after amiodarone drip 4. HTN: controlled 5. HLP: statin 6. 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 CAD: MPI noted with fixed inferior wall defect likely with prior infarct. Recommendations 1. Lifevest when discharge 2. ECASA, Eliquis, Digoxin, aldactone, toprol. lasix, and amiodarone 3. Follow up in 2 weeks 4. Consider CHF home health. SHERRY PULIDO MD 06/30/17 0838: CARDIO Progress Notes Assessment Assessment Patient seen and examined 06/29/17. Agree with RIVETER PORTABLE MACHINE's assessment and plan. Cardiomyopathy clinically well compensated. Continue current meds Lifevest upon DC and repeat echo in 3 months VIRIDIANA HIDALGO APRN Jun 29, 2017 14:09 SHERRY PULIDO MD Jun 30, 2017 08:38
[2017-06-29] MEDS: NYSTATIN TOPICAL POWDER 15GM BOTTLE. TP SCH ×2 (14:26→20:19)
[2017-06-29] MEDS: ANTI-COAG MONITOR BY PHARMACY. MC PRN ×2 (15:03→15:09)
[2017-06-29] MEDS: ATORVASTATIN CALCIUM 20 MG TABLET PO SCH (20:19)
[2017-06-30 03:00] VITALS: BP 94/64
[2017-06-30 05:55] LABS: BASO % 1 % (0-3); EOS % 3 % (0-3); HEMATOCRIT 42.9 % (36.0-47.0); LYMPH # 1.7 x10^3/uL (1.0-4.8); LYMPH % 25 % (24-48); MEAN CORPUSCULAR HEMOGLOBIN 27 pg (25-35); MEAN CORPUSCULAR HGB CONC 33 g/dL (31-37); MEAN CORPUSCULAR VOLUME 82 fL (79-100); MONO % 9 % (0-9); NEUT % 63 % (31-73); PLATELET COUNT 265 x10^3/uL (140-400); RED BLOOD COUNT 5.24 x10^6/uL (3.50-5.40); RED CELL DISTRIBUTION WIDTH 15.8 % (11.5-14.5); WHITE BLOOD COUNT 6.9 x10^3/uL (4.0-11.0)
[2017-06-30 05:56] LABS: CALCIUM 8.5 mg/dL (8.5-10.1); GFR 53.5; POTASSIUM 4.3 mmol/L (3.5-5.1)
[2017-06-30 07:00] VITALS: BP 107/66
--- NOTE | 2017-06-30 08:46 | PDOC ---
PULMONARY PROGRESS NOTES Subjective no soa, no pain, has occ cough, Vitals Vital Signs Date Time Temp Pulse Resp B/P (MAP) Pulse Ox O2 Delivery O2 Flow Rate FiO2 06/30/17 07:42 Room Air 06/30/17 07:00 97.6 83 16 107/66 (80) 95 97.6 ROS: No Nausea, No Chest Pain General: Alert, No acute distress Lungs: Crackles (bases) Cardiovascular: S1, S2 Abdomen: Soft, Non-tender Neuro Exam: Alert Extremities: No Edema Skin: Warm Labs Laboratory Tests Test 06/29/17 04:00 06/30/17 05:00 White Blood Count 6.3 x10^3/uL (4.0-11.0) 6.9 x10^3/uL (4.0-11.0) Red Blood Count 4.95 x10^6/uL (3.50-5.40) 5.24 x10^6/uL (3.50-5.40) Hemoglobin 13.3 g/dL (12.0-15.5) 14.0 g/dL (12.0-15.5) Hematocrit 40.9 % (36.0-47.0) 42.9 % (36.0-47.0) Mean Corpuscular Volume 83 fL (79-100) 82 fL (79-100) Mean Corpuscular Hemoglobin 27 pg (25-35) 27 pg (25-35) Mean Corpuscular Hemoglobin Concent 32 g/dL (31-37) 33 g/dL (31-37) Red Cell Distribution Width 15.3 % (11.5-14.5) 15.8 % (11.5-14.5) Platelet Count 224 x10^3/uL (140-400) 265 x10^3/uL (140-400) Neutrophils (%) (Auto) 66 % (31-73) 63 % (31-73) Lymphocytes (%) (Auto) 20 % (24-48) 25 % (24-48) Monocytes (%) (Auto) 11 % (0-9) 9 % (0-9) Eosinophils (%) (Auto) 3 % (0-3) 3 % (0-3) Basophils (%) (Auto) 1 % (0-3) 1 % (0-3) Neutrophils # (Auto) 4.1 x10^3uL (1.8-7.7) 4.4 x10^3uL (1.8-7.7) Lymphocytes # (Auto) 1.2 x10^3/uL (1.0-4.8) 1.7 x10^3/uL (1.0-4.8) Monocytes # (Auto) 0.7 x10^3/uL (0.0-1.1) 0.6 x10^3/uL (0.0-1.1) Eosinophils # (Auto) 0.2 x10^3/uL (0.0-0.7) 0.2 x10^3/uL (0.0-0.7) Basophils # (Auto) 0.1 x10^3/uL (0.0-0.2) 0.0 x10^3/uL (0.0-0.2) Sodium Level 139 mmol/L (136-145) 141 mmol/L (136-145) Potassium Level 3.7 mmol/L (3.5-5.1) 4.3 mmol/L (3.5-5.1) Chloride Level 103 mmol/L (98-107) 102 mmol/L (98-107) Carbon Dioxide Level 27 mmol/L (21-32) 31 mmol/L (21-32) Anion Gap 9 (6-14) 8 (6-14) Blood Urea Nitrogen 23 mg/dL (7-20) 20 mg/dL (7-20) Creatinine 0.9 mg/dL (0.6-1.0) 1.0 mg/dL (0.6-1.0) Estimated GFR (Cockcroft-Gault) 60.4 53.5 Glucose Level 107 mg/dL (70-99) 95 mg/dL (70-99) Calcium Level 8.3 mg/dL (8.5-10.1) 8.5 mg/dL (8.5-10.1) Laboratory Tests Test 06/30/17 05:00 White Blood Count 6.9 x10^3/uL (4.0-11.0) Red Blood Count 5.24 x10^6/uL (3.50-5.40) Hemoglobin 14.0 g/dL (12.0-15.5) Hematocrit 42.9 % (36.0-47.0) Mean Corpuscular Volume 82 fL (79-100) Mean Corpuscular Hemoglobin 27 pg (25-35) Mean Corpuscular Hemoglobin Concent 33 g/dL (31-37) Red Cell Distribution Width 15.8 % (11.5-14.5) Platelet Count 265 x10^3/uL (140-400) Neutrophils (%) (Auto) 63 % (31-73) Lymphocytes (%) (Auto) 25 % (24-48) Monocytes (%) (Auto) 9 % (0-9) Eosinophils (%) (Auto) 3 % (0-3) Basophils (%) (Auto) 1 % (0-3) Neutrophils # (Auto) 4.4 x10^3uL (1.8-7.7) Lymphocytes # (Auto) 1.7 x10^3/uL (1.0-4.8) Monocytes # (Auto) 0.6 x10^3/uL (0.0-1.1) Eosinophils # (Auto) 0.2 x10^3/uL (0.0-0.7) Basophils # (Auto) 0.0 x10^3/uL (0.0-0.2) Sodium Level 141 mmol/L (136-145) Potassium Level 4.3 mmol/L (3.5-5.1) Chloride Level 102 mmol/L (98-107) Carbon Dioxide Level 31 mmol/L (21-32) Anion Gap 8 (6-14) Blood Urea Nitrogen 20 mg/dL (7-20) Creatinine 1.0 mg/dL (0.6-1.0) Estimated GFR (Cockcroft-Gault) 53.5 Glucose Level 95 mg/dL (70-99) Calcium Level 8.5 mg/dL (8.5-10.1) Medications Active Scripts Medications Dose Route/Sig Max Daily Dose Days Date Category Atorvastatin Calcium 20 Mg Tablet 20 Mg PO HS 06/27/17 Reported Atorvastatin Calcium 20 Mg Tablet 20 Mg PO HS 06/26/17 Reported Cetirizine Hcl 10 Mg Tablet 10 Mg PO PRN DAILY PRN 06/26/17 Reported Multi-Day Vitamins (Multivitamin) 1 Each Tablet 1 Tab PO DAILY 06/26/17 Reported Impression . 1. Dyspnea secondary to development of acute congestive heart failure. clinically improved 2. Abnormal CT chest with bilateral infiltrates, bilateral pleural effusions and interlobular septal thickening. These are findings suggesting congestive heart failure, which is clinically improving. She also has a left upper lobe 12 mm small spiculated mass and the possibility of malignancy cannot be ruled out, but at this point, I will recommend treating congestive heart failure and following a CT chest in 4-6 weeks./ PET as OP 3. No significant history of tobacco use. 4. cardiomyopathy Plan . 1. Continue diuresis. monitor k, cr 2. echocardiogram reviewed. 3. PET scan as OP 4. oxygen titration. 5. Follow Cardiology recommendations. 6. remote h/o breast cancer, Normal tumor marker 7. f/u with dr vallejo after pet is done discussed w SNEHA Vallecillo MD Jun 30, 2017 08:46
[2017-06-30] MEDS: NYSTATIN TOPICAL POWDER 15GM BOTTLE. TP SCH ×2 (09:00→13:39)
[2017-06-30] MEDS: FUROSEMIDE 40 MG TABLET. PO SCH (09:18)
[2017-06-30] MEDS: SPIRONOLACTONE 25 MG TABLET PO SCH (09:19)
[2017-06-30] MEDS: METOPROLOL SUCC 24HR ER 25 MG TAB.ER.24H. PO SCH (09:19)
[2017-06-30] MEDS: APIXABAN 5 MG TABLET. PO SCH (09:19)
[2017-06-30] MEDS: AMIODARONE HCL 200 MG TABLET. PO SCH (09:19)
[2017-06-30] MEDS: POTASSIUM CHLORIDE 20 MEQ TABLET.ER. PO SCH (09:19)
[2017-06-30] MEDS: ASPIRIN ENTERIC COATED 81 MG TABLET.DR. PO SCH (09:20)
[2017-06-30] MEDS: DIGOXIN 125 MCG TABLET. PO SCH (09:20)
--- NOTE | 2017-06-30 10:02 | PDOC ---
PROGRESS NOTES Chief Complaint Chief Complaint CC SOB, CHF exacerbation afib RVR, acute diastolic CHF chronic systolic CHF, poor ER % Hypercholesterolemia Breast CA History of Present Illness History of Present Illness 81 y/o F with CC of SOB with CHF exacerbation alert, talkative, no complaint afib now controlle,d mostly in sinus cont current may DC if stop Amio gtt Vitals Vitals Vital Signs Date Time Temp Pulse Resp B/P (MAP) Pulse Ox O2 Delivery O2 Flow Rate FiO2 06/30/17 09:20 83 107/66 06/30/17 07:42 Room Air 06/30/17 07:00 97.6 16 95 97.6 Physical Exam General: Alert, Oriented X3, Cooperative, No acute distress Heart: Regular rate (SR), Normal S1, Normal S2, Other (2/6 systolic murmur to LLS border) Lungs: Crackles (bases) Abdomen: Soft, No tenderness Extremities: No cyanosis, Other (1+ bilateral LE pitting edema) Skin: No breakdown, No significant lesion Labs LABS Laboratory Tests Test 06/30/17 05:00 White Blood Count 6.9 x10^3/uL (4.0-11.0) Red Blood Count 5.24 x10^6/uL (3.50-5.40) Hemoglobin 14.0 g/dL (12.0-15.5) Hematocrit 42.9 % (36.0-47.0) Mean Corpuscular Volume 82 fL (79-100) Mean Corpuscular Hemoglobin 27 pg (25-35) Mean Corpuscular Hemoglobin Concent 33 g/dL (31-37) Red Cell Distribution Width 15.8 % (11.5-14.5) Platelet Count 265 x10^3/uL (140-400) Neutrophils (%) (Auto) 63 % (31-73) Lymphocytes (%) (Auto) 25 % (24-48) Monocytes (%) (Auto) 9 % (0-9) Eosinophils (%) (Auto) 3 % (0-3) Basophils (%) (Auto) 1 % (0-3) Neutrophils # (Auto) 4.4 x10^3uL (1.8-7.7) Lymphocytes # (Auto) 1.7 x10^3/uL (1.0-4.8) Monocytes # (Auto) 0.6 x10^3/uL (0.0-1.1) Eosinophils # (Auto) 0.2 x10^3/uL (0.0-0.7) Basophils # (Auto) 0.0 x10^3/uL (0.0-0.2) Sodium Level 141 mmol/L (136-145) Potassium Level 4.3 mmol/L (3.5-5.1) Chloride Level 102 mmol/L (98-107) Carbon Dioxide Level 31 mmol/L (21-32) Anion Gap 8 (6-14) Blood Urea Nitrogen 20 mg/dL (7-20) Creatinine 1.0 mg/dL (0.6-1.0) Estimated GFR (Cockcroft-Gault) 53.5 Glucose Level 95 mg/dL (70-99) Calcium Level 8.5 mg/dL (8.5-10.1) Assessment and Plan Assessmemt and Plan plan DC with life vest, home heatlh need outpatient cardiac rehab Problems: Comment Review of Relevant I have reviewed the following items george (where applicable) has been applied. Labs Laboratory Tests Test 06/29/17 04:00 06/30/17 05:00 White Blood Count 6.3 x10^3/uL (4.0-11.0) 6.9 x10^3/uL (4.0-11.0) Red Blood Count 4.95 x10^6/uL (3.50-5.40) 5.24 x10^6/uL (3.50-5.40) Hemoglobin 13.3 g/dL (12.0-15.5) 14.0 g/dL (12.0-15.5) Hematocrit 40.9 % (36.0-47.0) 42.9 % (36.0-47.0) Mean Corpuscular Volume 83 fL (79-100) 82 fL (79-100) Mean Corpuscular Hemoglobin 27 pg (25-35) 27 pg (25-35) Mean Corpuscular Hemoglobin Concent 32 g/dL (31-37) 33 g/dL (31-37) Red Cell Distribution Width 15.3 % (11.5-14.5) 15.8 % (11.5-14.5) Platelet Count 224 x10^3/uL (140-400) 265 x10^3/uL (140-400) Neutrophils (%) (Auto) 66 % (31-73) 63 % (31-73) Lymphocytes (%) (Auto) 20 % (24-48) 25 % (24-48) Monocytes (%) (Auto) 11 % (0-9) 9 % (0-9) Eosinophils (%) (Auto) 3 % (0-3) 3 % (0-3) Basophils (%) (Auto) 1 % (0-3) 1 % (0-3) Neutrophils # (Auto) 4.1 x10^3uL (1.8-7.7) 4.4 x10^3uL (1.8-7.7) Lymphocytes # (Auto) 1.2 x10^3/uL (1.0-4.8) 1.7 x10^3/uL (1.0-4.8) Monocytes # (Auto) 0.7 x10^3/uL (0.0-1.1) 0.6 x10^3/uL (0.0-1.1) Eosinophils # (Auto) 0.2 x10^3/uL (0.0-0.7) 0.2 x10^3/uL (0.0-0.7) Basophils # (Auto) 0.1 x10^3/uL (0.0-0.2) 0.0 x10^3/uL (0.0-0.2) Sodium Level 139 mmol/L (136-145) 141 mmol/L (136-145) Potassium Level 3.7 mmol/L (3.5-5.1) 4.3 mmol/L (3.5-5.1) Chloride Level 103 mmol/L (98-107) 102 mmol/L (98-107) Carbon Dioxide Level 27 mmol/L (21-32) 31 mmol/L (21-32) Anion Gap 9 (6-14) 8 (6-14) Blood Urea Nitrogen 23 mg/dL (7-20) 20 mg/dL (7-20) Creatinine 0.9 mg/dL (0.6-1.0) 1.0 mg/dL (0.6-1.0) Estimated GFR (Cockcroft-Gault) 60.4 53.5 Glucose Level 107 mg/dL (70-99) 95 mg/dL (70-99) Calcium Level 8.3 mg/dL (8.5-10.1) 8.5 mg/dL (8.5-10.1) Laboratory Tests Test 06/30/17 05:00 White Blood Count 6.9 x10^3/uL (4.0-11.0) Red Blood Count 5.24 x10^6/uL (3.50-5.40) Hemoglobin 14.0 g/dL (12.0-15.5) Hematocrit 42.9 % (36.0-47.0) Mean Corpuscular Volume 82 fL (79-100) Mean Corpuscular Hemoglobin 27 pg (25-35) Mean Corpuscular Hemoglobin Concent 33 g/dL (31-37) Red Cell Distribution Width 15.8 % (11.5-14.5) Platelet Count 265 x10^3/uL (140-400) Neutrophils (%) (Auto) 63 % (31-73) Lymphocytes (%) (Auto) 25 % (24-48) Monocytes (%) (Auto) 9 % (0-9) Eosinophils (%) (Auto) 3 % (0-3) Basophils (%) (Auto) 1 % (0-3) Neutrophils # (Auto) 4.4 x10^3uL (1.8-7.7) Lymphocytes # (Auto) 1.7 x10^3/uL (1.0-4.8) Monocytes # (Auto) 0.6 x10^3/uL (0.0-1.1) Eosinophils # (Auto) 0.2 x10^3/uL (0.0-0.7) Basophils # (Auto) 0.0 x10^3/uL (0.0-0.2) Sodium Level 141 mmol/L (136-145) Potassium Level 4.3 mmol/L (3.5-5.1) Chloride Level 102 mmol/L (98-107) Carbon Dioxide Level 31 mmol/L (21-32) Anion Gap 8 (6-14) Blood Urea Nitrogen 20 mg/dL (7-20) Creatinine 1.0 mg/dL (0.6-1.0) Estimated GFR (Cockcroft-Gault) 53.5 Glucose Level 95 mg/dL (70-99) Calcium Level 8.5 mg/dL (8.5-10.1) Medications Current Medications Clonidine HCl (Catapres) 0.2 mg 1X ONCE PO ; Start 06/25/17 at 15:00; Stop at 15:01; Status DC Iohexol (Omnipaque 300 Mg/ml) 75 ml 1X ONCE IV Last administered on 06/25/17 15:56; Start 06/25/17 at 15:15; Stop 06/25/17 at 15:16; Status DC Info (Do NOT chart on this entry -- for MONITORING) 1 each PRN DAILY PRN MC SEE COMMENTS; Start 06/25/17 at 15:15; Stop 06/27/17 at 15:14; Status DC Furosemide (Lasix) 40 mg 1X ONCE IVP Last administered on 06/25/17 16:32; Start 06/25/17 at 15:30; Stop 06/25/17 at 15:37; Status DC Aspirin (Children'S Aspirin) 162 mg 1X ONCE PO Last administered on 06/25/17 16:33; Start 06/25/17 at 15:30; Stop 06/25/17 at 15:37; Status DC Ondansetron HCl (Zofran) 4 mg PRN Q8HRS PRN IV NAUSEA/VOMITING; Start 06/25/17 at 16:45; Stop 06/26/17 at 16:44; Status DC Furosemide (Lasix) 40 mg Q12HR IVP ; Start 06/25/17 at 21:00; Stop 06/25/17 at 22:39; Status DC Furosemide (Lasix) 40 mg Q12HR IVP Last administered on 06/28/17 09:18; Start 06/26/17 at 09:00; Stop 06/28/17 at 10:33; Status DC Metoprolol Tartrate (Lopressor) 25 mg 1X ONCE PO Last administered on 11:08; Start 06/26/17 at 10:30; Stop 06/26/17 at 10:31; Status DC Metoprolol Tartrate (Lopressor) 25 mg BID PO Last administered on 06/27/17 21: 18; Start 06/26/17 at 21:00; Stop 06/28/17 at 10:20; Status DC Aspirin (Ecotrin) 81 mg [id number] PO Last administered on 06/30/17 09:20; Start 06/27/17 at 08:00 Apixaban (Eliquis) 5 mg BID PO Last administered on 06/30/17 09:19; Start at 11:00 Info (Anti-Coagulation Monitoring By Pharmacy) 1 each PRN DAILY PRN MC SEE COMMENTS Last administered on 06/29/17 15:09; Start 06/27/17 at 10:45 Digoxin (Lanoxin) 125 mcg DAILY PO Last administered on 06/30/17 09:20; Start 06/28/17 at 09:00 Atorvastatin Calcium (Lipitor) 20 mg QHS PO Last administered on 06/29/17 20: 19; Start 06/27/17 at 21:00 Potassium Chloride (Klor-Con) 40 meq 1X ONCE PO Last administered on 13:26; Start 06/27/17 at 12:00; Stop 06/27/17 at 12:07; Status DC Potassium Chloride (Klor-Con) 20 meq [id number] PO Last administered on 09:19; Start 06/28/17 at 08:00 Regadenoson (Lexiscan) 0.4 mg 1X ONCE IV Last administered on 06/27/17 12:45 ; Start 06/27/17 at 12:45; Stop 06/27/17 at 12:46; Status DC Regadenoson (Lexiscan) 0.4 mg STK-MED ONCE IV ; Start 06/27/17 at 12:42; Stop at 09:20; Status DC Metoprolol Succinate (Toprol Xl) 25 mg DAILY PO Last administered on 06/30/17 09:19; Start 06/29/17 at 09:00 Amiodarone HCl (Cordarone) 200 mg DAILY PO ; Start 06/28/17 at 12:00; Status Cancel Furosemide (Lasix) 40 mg [id number] PO Last administered on 06/30/17 09:18; Start 06/28/17 at 16:00 Spironolactone (Aldactone) 25 mg DAILY PO Last administered on 06/30/17 09:19 ; Start 06/28/17 at 12:00 Metoprolol Succinate (Toprol Xl) 25 mg 1X ONCE PO ; Start 06/28/17 at 11:30; Stop 06/28/17 at 11:31; Status DC Amiodarone HCl 150 mg/Dextrose 103 ml @ 618 mls/hr 1X ONCE IV Last administered on 06/28/17 13:10; Start 06/28/17 at 13:00; Stop 06/28/17 at 13:09 ; Status DC Amiodarone HCl 900 mg/Dextrose 518 ml @ 0 mls/hr CONT PRN IV SEE I/O RECORD Last administered on 06/28/17 13:30; Start 06/28/17 at 12:30; Stop 06/28/17 at 13:30; Status DC Amiodarone HCl (Cordarone) 200 mg DAILY PO Last administered on 06/30/17 09:19 ; Start 06/29/17 at 09:00 Nystatin (Nystop) 1 keila TID TP Last administered on 06/30/17 09:00; Start at 14:00 Active Scripts Active Metoprolol Succinate ( Xl ) (Metoprolol Succinate) 25 Mg Tab.er.24h 25 Mg PO DAILY Furosemide 40 Mg Tablet 40 Mg PO DAILY08 Aldactone (Spironolactone) 25 Mg Tablet 25 Mg PO DAILY Digoxin 125 Mcg Tablet 125 Mcg PO DAILY Aspirin Ec (Aspirin) 81 Mg Tablet.dr 81 Mg PO [id number] Amiodarone Hcl 200 Mg Tablet 200 Mg PO DAILY Eliquis (Apixaban) 5 Mg Tablet 5 Mg PO BID Reported Atorvastatin Calcium 20 Mg Tablet 20 Mg PO HS Cetirizine Hcl 10 Mg Tablet 10 Mg PO PRN DAILY PRN Multi-Day Vitamins (Multivitamin) 1 Each Tablet 1 Tab PO DAILY Vitals/I & O Vital Sign - Last 24 Hours 06/29/17 06/29/17 06/29/17 06/29/17 11:08 12:54 15:15 18:39 Temp 97.6 97.4 98.8 97.6 97.4 98.8 Pulse 106 98 104 88 Resp 18 18 18 B/P (MAP) 86/62 (70) 100/72 (81) 108/74 (85) 100/64 (76) Pulse Ox 95 95 95 O2 Delivery Room Air Room Air Room Air 06/29/17 06/29/17 06/30/17 06/30/17 19:31 23:10 03:00 07:00 Temp 97.6 97.6 97.6 97.6 97.6 97.6 Pulse 104 102 83 Resp 20 20 16 B/P (MAP) 102/70 (81) 94/64 (74) 107/66 (80) Pulse Ox 97 96 95 O2 Delivery Room Air Room Air Room Air Room Air 06/30/17 06/30/17 06/30/17 06/30/17 07:42 09:19 09:19 09:20 Pulse 83 83 83 B/P (MAP) 107/66 107/66 107/66 O2 Delivery Room Air Intake and Output 06/29/17 06/29/17 06/30/17 15:00 23:00 07:00 Intake Total 640 ml 240 ml 400 ml Output Total 350 ml 800 ml Balance 640 ml -110 ml -400 ml HANK ELLINGTON MD Jun 30, 2017 10:02
[2017-06-30 11:00] VITALS: BP 96/68
--- NOTE | 2017-06-30 14:38 | PDOC3 ---
Discharge Summary Visit Information Date of Admission: Jun 25, 2017 Date of Discharge: Jun 30, 2017 Admitting Diagnosis: dyspnea Final Diagnosis CC SOB, CHF exacerbation afib RVR, acute diastolic CHF chronic systolic CHF, poor ER % Hypercholesterolemia Breast CA Brief Hospital Course Allergies Allergies Coded Allergies Type Severity Reaction Last Updated Verified Penicillins Allergy Intermediate Rash 06/25/17 Yes Sulfa (Sulfonamide Antibiotics) Allergy Intermediate 06/25/17 Yes niacin Allergy Intermediate 06/25/17 Yes Vital Signs Vital Signs Date Time Temp Pulse Resp B/P (MAP) Pulse Ox O2 Delivery O2 Flow Rate FiO2 06/30/17 11:00 98.2 77 16 96/68 (77) 99 Room Air 98.2 Lab Results Laboratory Tests Test 06/29/17 04:00 06/30/17 05:00 White Blood Count 6.3 x10^3/uL (4.0-11.0) 6.9 x10^3/uL (4.0-11.0) Red Blood Count 4.95 x10^6/uL (3.50-5.40) 5.24 x10^6/uL (3.50-5.40) Hemoglobin 13.3 g/dL (12.0-15.5) 14.0 g/dL (12.0-15.5) Hematocrit 40.9 % (36.0-47.0) 42.9 % (36.0-47.0) Mean Corpuscular Volume 83 fL (79-100) 82 fL (79-100) Mean Corpuscular Hemoglobin 27 pg (25-35) 27 pg (25-35) Mean Corpuscular Hemoglobin Concent 32 g/dL (31-37) 33 g/dL (31-37) Red Cell Distribution Width 15.3 % (11.5-14.5) 15.8 % (11.5-14.5) Platelet Count 224 x10^3/uL (140-400) 265 x10^3/uL (140-400) Neutrophils (%) (Auto) 66 % (31-73) 63 % (31-73) Lymphocytes (%) (Auto) 20 % (24-48) 25 % (24-48) Monocytes (%) (Auto) 11 % (0-9) 9 % (0-9) Eosinophils (%) (Auto) 3 % (0-3) 3 % (0-3) Basophils (%) (Auto) 1 % (0-3) 1 % (0-3) Neutrophils # (Auto) 4.1 x10^3uL (1.8-7.7) 4.4 x10^3uL (1.8-7.7) Lymphocytes # (Auto) 1.2 x10^3/uL (1.0-4.8) 1.7 x10^3/uL (1.0-4.8) Monocytes # (Auto) 0.7 x10^3/uL (0.0-1.1) 0.6 x10^3/uL (0.0-1.1) Eosinophils # (Auto) 0.2 x10^3/uL (0.0-0.7) 0.2 x10^3/uL (0.0-0.7) Basophils # (Auto) 0.1 x10^3/uL (0.0-0.2) 0.0 x10^3/uL (0.0-0.2) Sodium Level 139 mmol/L (136-145) 141 mmol/L (136-145) Potassium Level 3.7 mmol/L (3.5-5.1) 4.3 mmol/L (3.5-5.1) Chloride Level 103 mmol/L (98-107) 102 mmol/L (98-107) Carbon Dioxide Level 27 mmol/L (21-32) 31 mmol/L (21-32) Anion Gap 9 (6-14) 8 (6-14) Blood Urea Nitrogen 23 mg/dL (7-20) 20 mg/dL (7-20) Creatinine 0.9 mg/dL (0.6-1.0) 1.0 mg/dL (0.6-1.0) Estimated GFR (Cockcroft-Gault) 60.4 53.5 Glucose Level 107 mg/dL (70-99) 95 mg/dL (70-99) Calcium Level 8.3 mg/dL (8.5-10.1) 8.5 mg/dL (8.5-10.1) Laboratory Tests Test 06/30/17 05:00 White Blood Count 6.9 x10^3/uL (4.0-11.0) Red Blood Count 5.24 x10^6/uL (3.50-5.40) Hemoglobin 14.0 g/dL (12.0-15.5) Hematocrit 42.9 % (36.0-47.0) Mean Corpuscular Volume 82 fL (79-100) Mean Corpuscular Hemoglobin 27 pg (25-35) Mean Corpuscular Hemoglobin Concent 33 g/dL (31-37) Red Cell Distribution Width 15.8 % (11.5-14.5) Platelet Count 265 x10^3/uL (140-400) Neutrophils (%) (Auto) 63 % (31-73) Lymphocytes (%) (Auto) 25 % (24-48) Monocytes (%) (Auto) 9 % (0-9) Eosinophils (%) (Auto) 3 % (0-3) Basophils (%) (Auto) 1 % (0-3) Neutrophils # (Auto) 4.4 x10^3uL (1.8-7.7) Lymphocytes # (Auto) 1.7 x10^3/uL (1.0-4.8) Monocytes # (Auto) 0.6 x10^3/uL (0.0-1.1) Eosinophils # (Auto) 0.2 x10^3/uL (0.0-0.7) Basophils # (Auto) 0.0 x10^3/uL (0.0-0.2) Sodium Level 141 mmol/L (136-145) Potassium Level 4.3 mmol/L (3.5-5.1) Chloride Level 102 mmol/L (98-107) Carbon Dioxide Level 31 mmol/L (21-32) Anion Gap 8 (6-14) Blood Urea Nitrogen 20 mg/dL (7-20) Creatinine 1.0 mg/dL (0.6-1.0) Estimated GFR (Cockcroft-Gault) 53.5 Glucose Level 95 mg/dL (70-99) Calcium Level 8.5 mg/dL (8.5-10.1) Brief Hospital Course Ms. Martini is a 81 old F admit with acute SOB with CHF exacerbation echo showed very poor EF, mult agents started for CHF improvement then afib with RVR, then meds changed for rate control Amiodarone started, good results, DC on 200 daily MPI stress showed better EF % under exertion 23%, no inducible ischemia DC with home health, need CV rehab Discharge Information Condition at Discharge: Improved Follow Up: Weeks Disposition/Orders: D/C to Home w/ HH Scheduled Amiodarone Hcl (Amiodarone Hcl), 200 MG PO DAILY Apixaban (Eliquis), 5 MG PO BID Aspirin (Aspirin Ec), 81 MG PO DAILYWBKFT Atorvastatin Calcium (Atorvastatin Calcium), 20 MG PO HS, (Reported) Digoxin (Digoxin), 125 MCG PO DAILY Furosemide (Furosemide), 40 MG PO DAILY08 Metoprolol Succinate (Metoprolol Succinate ( Xl )), 25 MG PO DAILY Multivitamin (Multi-Day Vitamins), 1 TAB PO DAILY, (Reported) Spironolactone (Aldactone), 25 MG PO DAILY Scheduled PRN Cetirizine Hcl (Cetirizine Hcl), 10 MG PO PRN DAILY PRN for ALLERGIES, (Reported ) Discontinued Medications Atorvastatin Calcium (Atorvastatin Calcium), 20 MG PO HS, (Reported) Patient Instructions Patient Instructions time > 30 min ECHO <Conclusion> Left ventricle ejection fraction is severely impaired. The Ejection Fraction is 10-15%. There is severe global hypokinesis of the left ventricle. RV Systolic function is mildly reduced. The ascending aorta is mildly dilated at 3.5 cm. There is a trace circumferential pericardial effusion. She has a left upper lobe 12 mm small spiculated mass and the possibility of malignancy cannot be ruled out, but at this point, I will recommend treating congestive heart failure and following a CT chest in 4-6 weeks. HANK ELLINGTON MD Jun 30, 2017 14:38
== END 2017-06-30 16:22 | disposition home health service (06) | DRG 292 ==
LOC: ER 14:19 → ED HOLD 15:00 → 2 NORTH 19:30
PROVIDERS: ADMIT Internal Medicine; ATTEND Internal Medicine
PROC: BW241ZZ Computerized Tomography (CT Scan) of Chest and Abdomen using Low Osmolar Contrast (ICD-10-PCS; principal; 2017-06-25)
DX: I11.0 Hypertensive heart disease with heart failure (principal); I48.92 Unspecified atrial flutter; I42.9 Cardiomyopathy, unspecified; C34.12 Malignant neoplasm of upper lobe, left bronchus or lung; J45.909 Unspecified asthma, uncomplicated; E78.00 Pure hypercholesterolemia, unspecified; R91.8 Other nonspecific abnormal finding of lung field; E66.9 Obesity, unspecified; E78.5 Hyperlipidemia, unspecified; I25.10 Atherosclerotic heart disease of native coronary artery without angina pectoris; I48.91 Unspecified atrial fibrillation; Z82.3 Family history of stroke; Z82.49 Family history of ischemic heart disease and other diseases of the circulatory system; Z90.11 Acquired absence of right breast and nipple; Z85.3 Personal history of malignant neoplasm of breast; Z88.0 Allergy status to penicillin; Z88.2 Allergy status to sulfonamides; Z88.8 Allergy status to other drugs, medicaments and biological substances; Z68.29 Body mass index [BMI] 29.0-29.9, adult; I50.31 Acute diastolic (congestive) heart failure
CPT/HCPCS: 36415; 71010; 71275; 78452; 80048; 80053; 80061; 81001; 83735; 83880; 84443; 84484; 85025; 86300; 93005; 93017; 93306; 96374; 96375; 96376; A9500; J0282; J1940; J2785; Q9967; 99285-25

== ENCOUNTER → 2017-08-02 | Outpatient (CLI) | payer OTHER ==
[~2017-08-02] MED LIST: AMIO200T2 PO; APIX5TAB PO; ASPI-612 PO; ATOR20TA58 PO; CETI10TA16 PO; DIGO125T PO; FURO40TA4 PO; METO-239 PO; MULT-208 PO; SPIR25TA PO
--- NOTE | 2017-08-03 13:56 | RAD ---
Indication pulmonary mass. PET/CT was performed from the skull through the proximal thigh. CT was performed primarily for localization and attenuation purposes as opposed to primary diagnostic purposes. No prior PET/CT imaging is available. Note is made of a CT examination of the chest 06/25/2017. On that examination a parenchymal mass was identified in the left upper lobe. The blood sugar during this examination was ordered was 112. 12.2 mCi of FDG was administered. On CT the visualized brain appears unremarkable. No significant finding is seen in the neck. Known 11 mm parenchymal mass in the left upper lobe is reproduced. There are some pleural-parenchymal changes in the right upper lobe most compatible with scar. An additional soft tissue mass is not seen. Changes of a right mastectomy are noted. There is some mild mediastinal adenopathy. Definite pathologic mediastinal or hilar adenopathy is not seen. The liver and spleen appear unremarkable. Gallbladder pancreas adrenal glands and kidneys are essentially unremarkable. Cysts are noted involving both kidneys. An acute or significant finding in the abdomen or pelvis is not seen. Degenerative changes are seen in the lumbar spine. There are substantial degenerative changes associated with the right shoulder. On PET the parenchymal nodule in the left upper lobe is FDG avid. Maximum SUV is approximately 3.5. The finding is most compatible with primary malignancy. There is no evidence of local extension into the hilum or mediastinum. There is no evidence of distant metastatic disease. The FDG is physiologically distributed in the visualized brain. No abnormal activity is seen in the neck. The FDG is physiologically distributed in the abdomen and pelvis. IMPRESSION: Known 11 mm pulmonary nodule in the left upper lobe is FDG avid compatible with primary malignancy. No evidence of metastatic disease to the chest. No evidence of distant metastatic disease
== END | disposition home or self-care (01) ==
LOC: PETSC 12:00
PROVIDERS: ATTEND Internal Medicine Critical Care Medicine
DX: R91.1 Solitary pulmonary nodule (principal)
CPT/HCPCS: 78815; A9552

== ENCOUNTER 2018-10-24 11:18 | Emergency (ER) | payer OTHER ==
[~2018-10-24] VITALS: Ht 180.3 cm; Wt 90.7 kg
[~2018-10-24 11:18] MED LIST changes: -AMIO200T2 PO; +AMIO200T4 PO
[2018-10-24] MEDS ORDERED: LIDOCAINE 1% Multi-Dose 20 ML VIAL. INJ ONE (12:00)
[2018-10-24 12:02] VITALS: BP 191/115
--- NOTE | 2018-10-24 12:18 | PHYS DOC ---
Past Medical History Past Medical History: High Cholesterol, Other Additional Past Medical Histor: SEASONAL ALLERGIES Past Surgical History: Oophorectomy Additional Past Surgical Histo: FOOT SX, MASECTOMY RIGHT SIDE Alcohol Use: Occasionally Drug Use: None Adult General Chief Complaint Chief Complaint: HEAD INJURY/TRAUMA [facility] HPI Patient is a 83 year old female who presents with facial trauma. Patient was ambulating [place] a shopping [place]. She was walking up a ramp when her right foot on up on the pavement causing her to fall. She did not have chest pain or palpitations or feel dizzy prior to the incident. She fell striking the right side of her face on the pavement. She did not have loss of consciousness. She has had no nausea or vomiting or vision changes. The incident happened just prior to presentation. She is uncertain when her last tetanus shot was. She denies chest pain or shortness of breath. No recent illness. No fever or chills. Review of Systems Review of Systems Constitutional: Denies fever or chills Eyes: Denies change in visual acuity HENT: Denies nasal congestion Respiratory: Denies cough or shortness of breath Cardiovascular: No additional information not addressed in HPI GI: Denies abdominal pain : Denies dysuria Musculoskeletal: Denies back pain Integument: Denies rash or skin lesions Neurologic: Denies headache Endocrine: Denies polyuria All other systems were reviewed and found to be within normal limits, except as documented in this note. Current Medications Current Medications Current Medications Medications (Trade) Dose Ordered Sig/Shellie Start Time Stop Time Status Last Admin Dose Admin Diphtheria/ Tetanus/Acell Pertussis (Boostrix) 0.5 ml ONCE ONCE 10/24/18 14:30 10/24/18 14:34 DC 10/24/18 14:44 0.5 ML Lidocaine HCl (Lidocaine 1% 20ml Vial) 20 ml 1X ONCE 10/24/18 12:00 10/24/18 12:01 DC 10/24/18 13:20 20 ML Allergies Allergies Allergies Coded Allergies Type Severity Reaction Last Updated Verified Penicillins Allergy Intermediate Rash 06/25/17 Yes Sulfa (Sulfonamide Antibiotics) Allergy Intermediate 06/25/17 Yes niacin Allergy Intermediate 06/25/17 Yes Physical Exam Physical Exam Constitutional: Well developed, well nourished, no acute distress, non-toxic appearance HENT: Normocephalic, laceration over the right orbit with some ecchymosis. TMs are intact and james. Normal range of motion about the TMJ. Eyes: PERRLA, EOMI, conjunctiva normal Neck: Normal range of motion, no tenderness Cardiovascular:Heart rate regular rhythm, no murmur Lungs & Thorax: Bilateral breath sounds clear to auscultation Abdomen: Bowel sounds normal, soft, no tenderness Skin: Warm, dry, no erythema Back: No tenderness Extremities: No tenderness, no trauma Neurologic: Alert and oriented X 3, normal motor function Psychologic: Affect normal Current Patient Data Vital Signs Vital Signs Date Time Temp Pulse Resp B/P (MAP) Pulse Ox O2 Delivery O2 Flow Rate FiO2 10/24/18 12:02 98.7 111 20 191/115 (140) 97 Room Air 98.7 EKG EKG [] Radiology/Procedures Radiology/Procedures CT HEAD, MAXILLOFACIAL, AND CERVICAL SPINE WITHOUT CONTRAST History: FELL, HEAD INJURY, Comparison: FDG PET/CT, skull base to upper thighs, August 02, 2017. Procedure: Axial images are obtained of the head from the skull base through the vertex without IV contrast. Noncontrast helical CT of the cervical spine was performed. Axial, sagittal, and coronal reconstructions were obtained. Helical CT imaging of the facial bones is performed without IV contrast. Findings: The ventricles and sulci are prominent, consistent with age-related cerebral atrophy. There is moderate periventricular and subcortical white matter hypoattenuation. This is a nonspecific finding but is commonly due to chronic small vessel ischemic disease in a patient of this age. No mass-effect, midline shift, hemorrhage or obvious acute infarction is identified. Basilar cisterns are patent. Bone windows demonstrate no significant calvarial abnormality. No acute facial bone fracture. Mild mucosal thickening right sphenoid sinus. There is no air-fluid level. Patient is mostly edentulous. There is a right mandible canine tooth cavity. Mastoid air cells are well aerated. There is opacity in the right external auditory canal. The globes and orbits are intact. Mild right frontal scalp hematoma. There is no evidence of acute fracture or acute malalignment of the cervical spine. Grade 1 anterolisthesis of C2 on C3 and C3 on C4 and C7 on T1 and T1 on T2. Disc space narrowing of C4/C5, C5/C6, and C6/C7. There are no perched or jumped facets although they are hypertrophic. The craniovertebral junction is normal. Visualized soft tissues of the neck demonstrate no significant abnormalities. There is opacity in the right lung apex stable compared to prior study. IMPRESSION: 1. No acute intracranial abnormality. 2. No acute fracture of the cervical spine. 3. No acute facial bone fracture. Course & Med Decision Making Course & Med Decision Making Pertinent Labs and Imaging studies reviewed. (See chart for details) 12:05: Patient is seen and examined. CT scan is ordered. She is offered pain medication but denies the need. Boostrix ordered. Patient was evaluated in the ER for a fall and facial laceration. See the procedure note below regarding laceration. During the ED course, the patient was given an update of her tetanus immunization. CT scan of the head, face, C- spine were completed and were without acute findings. Patient was discharged to home. She was advised to come back to the ER in 5-7 days to have sutures removed. She was agreeable to the plan of care. All of her questions are answered prior to discharge. Procedure note: Laceration over the right lateral orbit and eyebrow. The area was anesthetized with 4 mL of 1% lidocaine. The area was then cleansed copiously and irrigated with normal saline. There was a full thickness laceration with jagged edges and some missing skin pieces. The wound was oozing dark red blood briskly. A total of 10 sutures were used to reapproximate the wound and to control bleeding. 5-0 nylon was used. Simple interrupted technique. Following the procedure, the patient was developing a large hematoma in the area as she did continue to bleed subcutaneously. The patient is not anticoagulated but does take aspirin. Patient was observed in the ER until the bleeding was well controlled. A pressure dressing was also applied. She was provided an ice pack and advised to use ice multiple times daily for the next 48 hours. Tolerated the procedure well. The wound ultimately was hemostatic prior to discharge from the ER. Dragon Disclaimer Dragon Disclaimer This electronic medical record was generated, in whole or in part, using a voice recognition dictation system. Departure Departure Disposition: 01 HOME, SELF-CARE Condition: GOOD Referrals: MURIEL SLATER MD (PCP) KERRI PAREDES DO Oct 24, 2018 12:18
--- NOTE | 2018-10-24 12:55 | RAD ---
PQRS Compliance Statement: One or more of the following individualized dose reduction techniques were utilized for this examination: 1. Automated exposure control 2. Adjustment of the mA and/or kV according to patient size 3. Use of iterative reconstruction technique CT HEAD, MAXILLOFACIAL, AND CERVICAL SPINE WITHOUT CONTRAST History: FELL, HEAD INJURY, Comparison: FDG PET/CT, skull base to upper thighs, August 02, 2017. Procedure: Axial images are obtained of the head from the skull base through the vertex without IV contrast. Noncontrast helical CT of the cervical spine was performed. Axial, sagittal, and coronal reconstructions were obtained. Helical CT imaging of the facial bones is performed without IV contrast. Findings: The ventricles and sulci are prominent, consistent with age-related cerebral atrophy. There is moderate periventricular and subcortical white matter hypoattenuation. This is a nonspecific finding but is commonly due to chronic small vessel ischemic disease in a patient of this age. No mass-effect, midline shift, hemorrhage or obvious acute infarction is identified. Basilar cisterns are patent. Bone windows demonstrate no significant calvarial abnormality. No acute facial bone fracture. Mild mucosal thickening right sphenoid sinus. There is no air-fluid level. Patient is mostly edentulous. There is a right mandible canine tooth cavity. Mastoid air cells are well aerated. There is opacity in the right external auditory canal. The globes and orbits are intact. Mild right frontal scalp hematoma. There is no evidence of acute fracture or acute malalignment of the cervical spine. Grade 1 anterolisthesis of C2 on C3 and C3 on C4 and C7 on T1 and T1 on T2. Disc space narrowing of C4/C5, C5/C6, and C6/C7. There are no perched or jumped facets although they are hypertrophic. The craniovertebral junction is normal. Visualized soft tissues of the neck demonstrate no significant abnormalities. There is opacity in the right lung apex stable compared to prior study. IMPRESSION: 1. No acute intracranial abnormality. 2. No acute fracture of the cervical spine. 3. No acute facial bone fracture. Electronically signed by: Ezra Virgen MD (10/24/2018 12:51 PM) [id number]
[2018-10-24] MEDS ORDERED: DIPHTH,PERTUSS(ACELL),TET TOX 0.5 ML DISP.SYRIN. VAX IM ONE (14:30)
== END 2018-10-24 15:03 | disposition home or self-care (01) ==
LOC: ER 11:18
DX: S01.111A Laceration without foreign body of right eyelid and periocular area, initial encounter (principal); E78.00 Pure hypercholesterolemia, unspecified; Z88.0 Allergy status to penicillin; Z88.2 Allergy status to sulfonamides; Z88.8 Allergy status to other drugs, medicaments and biological substances; W18.39XA Other fall on same level, initial encounter; Y93.89 Activity, other specified; Y92.89 Other specified places as the place of occurrence of the external cause; Y99.8 Other external cause status
CPT/HCPCS: 12011; 70450; 70486; 72125; 90471; 90715; 99284-25